=== PATIENT | male | born 1990 | race Caucasian/White ===

== ENCOUNTER 2019-06-04 09:02 | Emergency (ER) | payer BC, SELFPAY ==
[2019-06-04 09:06] VITALS: BP 124/81; PULSE 101; RESP 18; TEMP 37.5; O2SAT 97
--- NOTE | 2019-06-04 09:08 | ED.URI ---
HPI - URI/Sore Throat General Chief Complaint: Upper Respiratory Infection Stated Complaint: CHEST/HEAD COLD Time Seen by Provider: 06/04/19 09:17 Source: patient and RN notes reviewed Mode of arrival: ambulatory Limitations: no limitations History of Present Illness HPI Narrative: 28-year-old male presents with concern for 4-day history of chest congestion, cough, sore throat. Reports throat gets sore with coughing. Reports chills, fatigue, general malaise. Denies fever. Reports has been taking DayQuil and NyQuil with some relief. MD elicited complaint: cough Related Data Home Medications Medication Instructions Recorded Confirmed Arely DayQuil-NyQuil 06/04/19 Allergies Allergy/AdvReac Type Severity Reaction Status Date / Time No Known Allergies Allergy Verified 06/04/19 09:14 Review of Systems Review of Systems: Narrative: CONSTITUTIONAL: Reports malaise, chills, sweats. Denies fever. EYES: Denies visual changes, redness, or discharge. ENT: Reports rhinorrhea, sore throat. Denies sinus pain, otalgia and congestion. CARDIOVASCULAR: Denies chest pain, palpitations, or edema. RESPIRATORY: Reports productive cough, chest congestion. Denies dyspnea. GASTROINTESTINAL: Denies abdominal pain, nausea, vomiting, diarrhea SKIN: Denies rash or itching. MUSCULOSKELETAL: Reports myalgia. NEUROLOGIC: Denies headache. All systems reviewed & are unremarkable except as noted in HPI and below PMFSH Family History Family History (Updated 09/01/18 @ 14:27 by DOCTOR UNKNOWN) Grandparent Diabetes mellitus Acute myocardial infarction Cerebrovascular accident Family history of cardiovascular disease Father Hypertension Family history of cardiovascular disease Social History Social History Smoking status: Never smoker Alcohol intake: current Comments At time of signature, agree with nursing past medical, surgical, social and family history. There is no relevant family history pertinent to the presenting complaint Exam Narrative: Exam Narrative: GENERAL: Well-appearing, well-nourished, and in no acute distress. HEAD: Normocephalic, atraumatic. EYES: PERRLA, conjunctivae clear, and EOMI. ENT: Nares clear, turbinates erythematous, clear discharge. Mucous membranes moist. TM pearly pitt with dull light reflex bilaterally; no tragal tenderness. Oropharynx erythematous without lesions. Tonsils not 3 relief and without exudate, no drooling, no hoarseness, no trismus. NECK: Supple. No lymphadenopathy CHEST: Clear to auscultation, breath sounds equal. No wheezing, rhonchi, rales, or stridor. No respiratory distress, speaks in full sentences. Cough noted HEART: Regular rate and rhythm. No murmur heard. Normal peripheral pulses. SKIN: Warm, dry, no rash. NEURO: Alert and oriented x3. PSYCH: Normal mood and affect Course Course Emergency Course: Patient is aware of diagnosis, understands and agrees to treatment plan. Anticipatory guidance given. Patient agrees to follow-up as directed and is aware of reasons to seek care at the emergency department. Portions of this record may have been created with voice recognition software Vital Signs Vital signs: Reviewed. Pt has been instructed to follow up with his primary care provider within the next week regarding his elevated blood pressure today. MDM - URI/Sore Throat MDM Narrative Medical decision making narrative: Differential diagnosis considered: Strep pharyngitis, allergic rhinitis, upper respiratory tract infection, sinusitis, rhinosinusitis, nasopharyngitis. viral pharyngitis, otitis media, otitis externa, pneumonia, bronchitis, viral cough syndrome, viral syndrome, and influenza. Exam findings show no acute concerns or changes; patient is non-toxic appearing and is in no distress. Patient is appropriate for outpatient treatment and follow-up. Critical Care Time Critical Care Time Critical Care Time: No Discharge Plan Discharge Clinical Impression: Acute
== END 2019-06-04 09:42 | disposition home or self-care (01) ==
PROVIDERS: Emergency Provider Nurse Practitioner; PCP Family Medicine
DX: B34.9 Viral infection, unspecified (principal)
CPT/HCPCS: 87804; 99213; G0463

== ENCOUNTER 2024-09-01 20:19 | Emergency (ER) | payer OTHER, SELFPAY ==
--- NOTE | ~2024-09-01 | CT_ITS ---
CT abdomen pelvis w con Ordering provider: Miranda Murguia PA-C History: 34 years Male with . abd pain, dysuria, hematuria . Comparison: None. Technique: CT abdomen and pelvis with IV and without oral contrast. Automated exposure control and it erative reconstruction technique were employed. The dose-length product was 968.55 mGy-cm. 100 mL Omn ipaque 350 was given IV. Findings: VISUALIZED LOWER CHEST: Dependent atelectatic changes. The UPPER ABDOMINAL ORGANS: Liver: Normal. Gallbladder: Normal. Spleen: Normal. Stomach/duodenum: Small sliding hiatus hernia. Pancreas: Normal. Adrenals: Normal. Kidneys: Normal. PELVIC ORGANS: The bladder is underfilled with thickened wall. Evaluation for cystitis advised. BOWEL AND MESENTERY: Colon: No evidence of diverticulitis.. No evidence of appendicitis. Small Bowel: Normal. No obstruction. Possibility of transient hernia in the small bowel in the mid ab domen is not excluded with target-like appearance Follow-up advised. Slightly thickened small bowel loop is seen in the mid abdomen Peritoneum/mesentery: No free air or free fluid. No mesenteric lymphadenopathy. Mesenteric lymph node s with the largest measuring 1.6 cm is noted. RETROPERITONEUM: Normal aorta. No retroperitoneal lymphadenopathy. MUSCULOSKELETAL: Superficial soft tissues: The superficial soft tissues are normal. Bones: Normal spine. IMPRESSION: 1. No evidence of appendicitis, diverticulitis or intestinal obstruction. 2. Mesenteric lymph nodes with the largest measures 1.6 cm. 3. Highly suggestive transient intussusception in the small bowel. Follow-up advised. Reviewed, dictated and finalized at location A. IMPRESSION: 1. No evidence of appendicitis, diverticulitis or intestinal obstruction. 2. Mesenteric lymph nodes with the largest measures 1.6 cm. 3. Highly suggestive transient intussusception in the small bowel. Follow-up a dvised.
--- OUTSIDE RECORDS SUMMARY | 2024-09-01 20:22 | XMS_ITS | Patient Health Record ---
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
--- OUTSIDE RECORDS SUMMARY | 2024-09-01 20:22 | XMS_ITS | Continuity of Care Document ---
Author Organization [facility] Address [address] [place] [address] [place] [id number] Phone Care Team Providers Care Burglar Alarm Inspector Name Role Phone Jesus PT,MPT,ATC, Dennis Unavailable Unavai lable Procedures Procedure Date WORK COND/WORK HARD RE EVAL Work Conditioning Initial 2 hrs 024 Work Conditioning Initial 2 hrs 024 Work Conditioning add 1 hr Work Conditioning Initial 2 hrs 024 Work Conditioning add 1 hr Work Conditioning Initial 2 hrs 024 Work Conditioning add 1 hr Work Conditioning Initial 2 hrs 024 Work Conditioning add 1 hr Work Cond Initial Report Work Conditioning Initial 2 hrs 024 Therapeutic Activities Neuromuscular Re-Ed Therapeutic Exercise Therapeutic Activities Neuromuscular Re-Ed Therapeutic Exercise Therapeutic Activities Neuromuscular Re-Ed Therapeutic Exercise Therapeutic Activities Neuromuscular Re-Ed Therapeutic Exercise Therapeutic Activities Neuromuscular Re-Ed Therapeutic Exercise Therapeutic Activities Neuromuscular Re-Ed Therapeutic Exercise PROTECTIVE SERVICES OFFICER Acute Therapeutic Activities Neuromuscular Re-Ed Therapeutic Exercise Therapeutic Activities Neuromuscular Re-Ed Therapeutic Exercise Therapeutic Activities Therapeutic Exercise Therapeutic Activities Therapeutic Exercise Therapeutic Activities Therapeutic Exercise Therapeutic Activities Therapeutic Exercise Therapeutic Activities Therapeutic Exercise Therapeutic Activities Therapeutic Exercise Therapeutic Activities Therapeutic Exercise Progress Note Therapeutic Activities Therapeutic Exercise Therapeutic Activities Therapeutic Exercise Therapeutic Activities Therapeutic Exercise Therapeutic Activities Therapeutic Exercise Therapeutic Activities Therapeutic Exercise Therapeutic Activities Therapeutic Exercise Therapeutic Activities Therapeutic Exercise Therapeutic Activities Therapeutic Exercise PT Evaluation High Complexity Therapeutic Activities WORK COND/WORK HARD RE EVAL Work Conditioning Initial 2 hrs 023 Work Conditioning Initial 2 hrs 023 Work Conditioning add 1 hr Work Conditioning Initial 2 hrs 023 Work Conditioning add 1 hr Work Conditioning Initial 2 hrs 023 Work Conditioning add 1 hr Therapeutic Activities Neuromuscular Re-Ed Therapeutic Exercise Work Conditioning Initial 2 hrs 023 Work Conditioning add 1 hr Work Conditioning Initial 2 hrs 023 Work Conditioning add 1 hr Progress Note Therapeutic Activities Neuromuscular Re-Ed Work Conditioning Initial 2 hrs 023 Work Conditioning add 1 hr Therapeutic Activities Neuromuscular Re-Ed Therapeutic Exercise Work Conditioning Initial 2 hrs 023 Work Conditioning add 1 hr Work Conditioning Initial 2 hrs 023 Work Conditioning add 1 hr Neuromuscular Re-Ed Therapeutic Exercise Work Cond Initial Report Neuromuscular Re-Ed Therapeutic Exercise Neuromuscular Re-Ed Therapeutic Exercise Neuromuscular Re-Ed Therapeutic Exercise Neuromuscular Re-Ed Therapeutic Exercise Hot or Cold Pack Neuromuscular Re-Ed Therapeutic Exercise Neuromuscular Re-Ed Therapeutic Exercise Neuromuscular Re-Ed Therapeutic Exercise Neuromuscular Re-Ed Therapeutic Exercise Neuromuscular Re-Ed Therapeutic Exercise Therapeutic Activities Neuromuscular Re-Ed Therapeutic Exercise Therapeutic Activities Neuromuscular Re-Ed Therapeutic Exercise Therapeutic Activities Neuromuscular Re-Ed Therapeutic Exercise PT Evaluation High Complexity Therapeutic Activities Neuromuscular Re-Ed Therapeutic Activities Therapeutic Exercise Therapeutic Activities Therapeutic Exercise Therapeutic Activities Therapeutic Exercise Progress Note Therapeutic Activities Therapeutic Exercise Therapeutic Activities Therapeutic Exercise Therapeutic Activities Therapeutic Exercise Therapeutic Activities Therapeutic Exercise Therapeutic Activities Therapeutic Exercise Therapeutic Activities Therapeutic Exercise Therapeutic Activities Therapeutic Exercise Therapeutic Activities Therapeutic Exercise Progress Note Therapeutic Activities Therapeutic Exercise Therapeutic Activities Therapeutic Exercise Therapeutic Activities Therapeutic Exercise Therapeutic Activities Therapeutic Exercise Therapeutic Activities Therapeutic Exercise Therapeutic Activities Neuromuscular Re-Ed Therapeutic Exercise Therapeutic Activities Neuromuscular Re-Ed Therapeutic Exercise Therapeutic Activities Neuromuscular Re-Ed Therapeutic Exercise Therapeutic Activities Neuromuscular Re-Ed Therapeutic Exercise Therapeutic Activities Neuromuscular Re-Ed Therapeutic Exercise Therapeutic Activities Neuromuscular Re-Ed Therapeutic Exercise Therapeutic Activities Neuromuscular Re-Ed Therapeutic Exercise Therapeutic Activities Neuromuscular Re-Ed Therapeutic Exercise Therapeutic Activities Neuromuscular Re-Ed Therapeutic Exercise Therapeutic Activities Neuromuscular Re-Ed Therapeutic Exercise Therapeutic Activities Neuromuscular Re-Ed Therapeutic Exercise Therapeutic Activities Neuromuscular Re-Ed Therapeutic Exercise Therapeutic Activities Neuromuscular Re-Ed Therapeutic Exercise Therapeutic Activities Neuromuscular Re-Ed Therapeutic Exercise Therapeutic Activities Neuromuscular Re-Ed Therapeutic Exercise Therapeutic Activities Neuromuscular Re-Ed Therapeutic Exercise Therapeutic Activities Neuromuscular Re-Ed Therapeutic Exercise Therapeutic Activities Neuromuscular Re-Ed Therapeutic Exercise Therapeutic Activities Neuromuscular Re-Ed Therapeutic Exercise Therapeutic Activities Neuromuscular Re-Ed Therapeutic Exercise Therapeutic Activities Neuromuscular Re-Ed Therapeutic Exercise Therapeutic Activities Neuromuscular Re-Ed Therapeutic Exercise Therapeutic Activities Neuromuscular Re-Ed Aug- Therapeutic Exercise Therapeutic Activities Aug- Neuromuscular Re-Ed Aug- Therapeutic Exercise Therapeutic Activities Neuromuscular Re-Ed Therapeutic Exercise Therapeutic Activities Aug- Neuromuscular Re-Ed Aug- Therapeutic Exercise Therapeutic Activities Neuromuscular Re-Ed Therapeutic Exercise Therapeutic Activities Aug- Neuromuscular Re-Ed Aug- Therapeutic Exercise Therapeutic Activities Aug- Neuromuscular Re-Ed Aug- Therapeutic Exercise Progress Note Therapeutic Activities Neuromuscular Re-Ed Aug- Therapeutic Exercise Therapeutic Activities Neuromuscular Re-Ed Aug- Therapeutic Exercise Therapeutic Activities Aug- Neuromuscular Re-Ed Aug- Therapeutic Exercise Therapeutic Activities Neuromuscular Re-Ed Therapeutic Exercise Therapeutic Activities Neuromuscular Re-Ed Therapeutic Exercise Therapeutic Activities Neuromuscular Re-Ed Therapeutic Exercise Therapeutic Activities Neuromuscular Re-Ed Therapeutic Exercise Hot or Cold Pack Therapeutic Activities Neuromuscular Re-Ed Therapeutic Exercise Therapeutic Activities Neuromuscular Re-Ed Therapeutic Exercise Therapeutic Activities Neuromuscular Re-Ed Therapeutic Exercise Therapeutic Activities Neuromuscular Re-Ed Therapeutic Exercise Therapeutic Activities Neuromuscular Re-Ed Therapeutic Exercise Therapeutic Activities Neuromuscular Re-Ed Therapeutic Exercise Therapeutic Activities Neuromuscular Re-Ed Therapeutic Exercise PT Evaluation Moderate Complexity Therapeutic Activities Neuromuscular Re-Ed Therapeutic Exercise Therapeutic Activities Neuromuscular Re-Ed Therapeutic Exercise Therapeutic Activities Neuromuscular Re-Ed Therapeutic Exercise PT Evaluation Moderate Complexity Therapeutic Activities Neuromuscular Re-Ed Therapeutic Exercise Advance Directives Directive Yes / No Effective Date File Name No Information Encounters Encounter Description Practice Location Reason(s) For Visit Diagnoses Date Provider Providers Copied on Encounter [facility] [facility], [place], [place], [id number], [place] tel:[phone] [place] No Information 4 [place]. [facility], [place], [place], [address], [place] tel:[phone] [place] No Information 4 Ludy Castanoian. [id number] [place] [address], [facility], [place]. tel:[phone] Referring Provider: Garth Mcgarry [address], [place], [address]. tel:[phone] [place], [place] [address] [address], [place], [place], [id number], [place] tel:[phone] [place] No Information 4 [place] , [place], [place]. Referring Provider: Garth Mcgarry [address], [place], [address]. tel:[phone] [place], [place] [address] [address], [place], [place], [address], [place] tel:[phone] [place] No Information 4 [place] , [place]. Referring Provider: Garth Mcgarry [address], [place], [address]. tel:[phone] [place], [place] [address] [address], [place], [place], [address], [place] tel:[phone] [place] No Information 4 [place] , [place]. Referring Provider: Garth Mcgarry [address], [place], [address]. tel:[phone] [place], [place] [address] [address], [place], [place], [address], [place] tel:[phone] [place] No Information 4 [place] , [place]. Referring Provider: Garth Mcgarry [address], [place], [address]. tel:[phone] [facility], [place], [place], [id number], [place] tel:[phone] [place] No Information 4 Clarisaisis Miller. [address] [place], [place], [facility], [place]. tel:[phone] Referring Provider: Patel Casillas, [address], [place], [address]. tel:[phone] [place] [address], [address], [place], [place], [address], [place] tel:[phone] [place] No Information 4 Garrels Mireille. . Referring Provider: Patel Casillas, [address], [place], [address]. tel:[phone] [place], [place] [address] [address], [place], [address], [place] tel:[phone] [place] No Information 4 Ohnesorge Merrill. . Referring Provider: Garth Mcgarry [address], [place], [address]. tel:[phone] [place], [place] [address] [address], [place], [place], [address], [place] tel:[phone] [place] No Information 4 [place] , [place]. Referring Provider: Garth Mcgarry [address], [place], [address]. tel:[phone] [place], [place] [address] [address], [place], [place], [address], [place] tel:[phone] [place] No Information 4 Ohnesorge Merrill. . Referring Provider: Garth Mcgarry [address], [place], [address]. tel:[phone] [facility], [place], [address], [place] tel:[phone] [place] No Information 4 [place] , [place]. Referring Provider: Garth Mcgarry [address], [place], [address]. tel:[phone] [facility], [address], [place], [place], [address], [place] tel:[phone] [place] No Information 4 Ohnesorge Merrill. . Referring Provider: Patel Casillas, [address], [place], [address]. tel:[phone] [facility], [address], [place], [place], [address], [place] tel:[phone] [place] No Information 4 [place] , [place]. Referring Provider: Patel Casillas, [address], [place], [address]. tel:[phone] [place] [address], [address], [place], [place], [address], [place] tel:[phone] [place] No Information 4 Toro Dan. . Referring Provider: Garth Mc[address], [place], [address]. tel:[phone] [facility], [address], [place], [place], [address], [place] tel:[phone] [place] No Information 4 [place] , [place]. Referring Provider: Garth Mcgar[address], [place], [address]. tel:[phone] [facility], [address], [place], [place], [address], [place] tel:[phone] [place] No Information 0 4 Ohnesorge Merrill. . Referring Provider: Garth Mc[address], [place], [address]. tel:[phone] [facility], [address], [place], [place], [address], [place] tel:[phone] [place] No Information 0 4 Brittaney Cooley. . Referring Provider: Patel Casillas, [address], [place], [address]. tel:[phone] [facility], [address], [place], [address], [place] tel:[phone] [place] No Information 4 Brittaney Cooley. . Referring Provider: Patel Casillas, [address], [place], [address]. tel:[phone] [facility], [address], [place], [place], [id number], [place] tel:[phone] [place] No Information 4 Jose Momin. . Referring Provider: Patel Casillas, [address], [place], [address]. tel:[phone] [place] [address], [address], [place], [place], [address], [place] tel:[phone] [place] No Information 4 [place] , [place] Referring Provider: Patel Casillas, [address], [place], [address]. tel:[phone] [facility], [address], [place], [place], [address], [place] tel:[phone] [place] No Information 4 Brittaney Cooley. . Referring Provider: Patel Casillas, [address], [place], [address]. tel:[phone] [facility], [address], [place], [place], [address], [place] tel:[phone] [place] No Information 4 Brittaney Cooley. . Referring Provider: Patel Casillas, [address], [place], [address]. tel:[phone] [facility], [address], [place], [place], [address], [place] tel:[phone] [place] No Information - 4 Klahn Yasir. . Referring Provider: Patel Casillas, [address], [place], [address]. tel:[phone] [place], [place] [address] [address], [place], [place], [id number], [place] tel:[phone] [place] No Information 0 4 Klahn Yasir. . Referring Provider: Patel Casillas, [address], [place], [address]. tel:[phone] [place] [address], [address], [place], [place], [address], [place] tel:[phone] [place] No Information 0 4 Klahn Yasir. . Referring Provider: Garth cMgarry [address], [place], [address]. tel:[phone] [place] [address] [address], [place], [place], [id number], [place] tel:[phone] [place] No Information September-3 0 4 Klahn Yasir. . Referring Provider: Garth Mcgarry [address], [place], [address]. tel:[phone] [place], [place] [address] [address], [place], [address], [place] tel:[phone] [place] No Information September- 4 Kln Yasir. . Referring Provider: Garth Mcgar[address], [place], [address]. tel:[phone] [place] [address] [address], [place], [place], [address], [place] tel:[phone] [place] No Information September-2 3 4 Keikon Yasir. . Referring Provider: Patel Casillas [address], [place], [address]. tel:[phone] [facility], [place], [address], [place] tel:[phone] [place] No Information 4 Brittaney Cooley. . Referring Provider: Patel Casillas, [address] [facility] [address], [place], [address]. tel:[phone] [place], [place] [address] [address], [place], [place], [address], [place] tel:[phone] [place] No Information 4 Channing [place], [place]. Referring Provider: Patel Casillas, [address], [place], [address]. tel:[phone] [place] [address] [address], [place], [place], [address], tel:[phone] [place] No Information 3 Ludy Miller. [address] [place] [address], [facility], . tel:[phone] Referring Provider: Patel Hadley [address] [facility] [address], [place], [address]. tel:[phone] [place], [place] [address] [address], [place], [place], [address], [place] tel:[phone] [place] No Information 3 Ch[place]. Referring Provider: Patel Hadley [address] [facility] [address], [place], [address]. tel:[phone] [place], [place] [address] [address], [place], [address], [place] tel:[phone] [place] No Information 3 Brittaney Cooley. . Referring Provider: Patel Hadley [address] [facility] [address], [place], [address]. tel:[phone] [place], [place] [address] [address], [place], [address], [place] tel:[phone] [place] No Information 3 Jose Momin. . Referring Provider: Patel Hadley [address] [facility] [address], [place], [address]. tel:[phone] [place] [address], [address], [place], [address], [place] tel:[phone] [place] No Information 3 Brittaney Cooley. . Referring Provider: Maykel Limon, [address] [facility] [address], [place], [address]. tel:[phone] [address] [place] [address], [address], [place], [address], [place] tel:[phone] [place] No Information 3 Jose Momin. . Referring Provider: Patel Hadley, [address] [facility] [address], [place], [address]. tel:[phone] [address] [place] [address], [address] [facility], [place], [address], [place] tel:[phone] [place] No Information 3 Brittaney Cooley. . Referring Provider: Patel Hadley [address] [facility] [address], [place], [address]. tel:[phone] [address] [place] [address] [address], [place], [place], [address], [place] tel:[phone] [place] No Information 3 Brittaney Cooley. . Referring Provider: Maykel Limon, [address] [facility] [address], [place], [address]. tel:[phone] [address] [place] [address], [address], [place], [address], [place] tel:[phone] [place] No Information 3 [place]. Referring Provider: Patel Hadley [address] [facility] [address], [place], [address]. tel:[phone] [place] [address], [address], [place], [address], [place] tel:[phone] [place] No Information 3 Ohnesorge Merrill. . Referring Provider: Maykel Limon, [address], [place], [address]. tel:[phone] [facility], [address] [place] [address] [address], [place], [address], [place] tel:[phone] [place] No Information 3 Lee [place]ER[place], [place]. Referring Provider: Patel Hadley, [address], [place], [address]. tel:[phone] [place] [address], [address] [place], [place] [address], [place], [address], [place] tel:[phone] [place] No Information 3 Ohnesorge Merrill. . Referring Provider: Patel Hadley [address], [place], [address]. tel:[phone] [place] [address], [address] [place], [place] [address] [address], [place], [address], [place] tel:[phone] [place] No Information 0 3 Jesus [place], [place]. Referring Provider: Maykel Limon, [address] [facility] [address], [place], [address]. tel:[phone] [place] [address] [place] [address] [address], [place], [address], [place] tel:[phone] [place] No Information 0 3 Bob Maldonado. . Referring Provider: Patel Hadley [address], [place], [address]. tel:[phone] [place] [address], [address] [place] [address] [address], [place], [address], [place] tel:[phone] [place] No Information 0 3 Brittaney Cooley. . Referring Provider: Maykel Limon, [address], [place], [address]. tel:[phone] [place] [address], [address] [place] [address] [address], [place], [address], [place] tel:[phone] [place] No Information 3 Brittaney Cooley. . Referring Provider: Patel Hadley [address] [facility] [address], [place], [address]. tel:[phone] [place] [address], [address], [place], [address], [place] tel:[phone] [place] No Information 3 Brittaney Cooley. . Referring Provider: Maykel Limon, [address], [place], [address]. tel:[phone] [place] [address], [address] [facility], [place], [address], [place] tel:[phone] [place] No Information 3 [place]. Referring Provider: Patel Hadley [address] [facility] [address], [place], [address]. tel:[phone] [place] [address], [address] [facility], [place], [address], [place] tel:[phone] [place] No Information 3 Brittaney Cooley. . Referring Provider: Maykel Limon, [address], [place], [address]. tel:[phone] [place] [address], [address], [place], [address], [place] tel:[phone] [place] No Information 3 [place]. Referring Provider: Patel Hadley [address] [facility] [address], [place], [address]. tel:[phone] [place] [address], [address], [place], [address], [place] tel:[phone] [place] No Information 3 Jose Momin. . Referring Provider: Maykel Limon [address] [facility] [address], [place], [address]. tel:[phone] [facility], [address], [place], [place], [address], [place] tel:[phone] [place] No Information 3 Jose Momin. . Referring Provider: Maykel Limon, [address], [place], [address]. tel:[phone] [facility], [facility] [address], [place], [address], [place] tel:[phone] [place] No Information 3 Brittaney Cooley. . Referring Provider: Maykel Limon, [address], [place], [address]. tel:[phone] [place] [address], [address] [place], [place] [address] [address], [place], [address], [place] tel:[phone] [place] No Information 3 Brittaney Cooley. . Referring Provider: Maykel Limon, [address], [place], [address]. tel:[phone] [facility], [address] [facility], [place], [address], [place] tel:[phone] [place] No Information 3 Brittaney Cooley. . Referring Provider: Maykel Limon, [address], [place], [address]. tel:[phone] [facility], [address], [place], [place], [address], [place] tel:[phone] [place] No Information 3 Brittaney Cooley. . Referring Provider: Maykel Limon, [address], [place], [address]. tel:[phone] [facility], [address] [facility], [place], [place], [address], [place] tel:[phone] [place] No Information - 3 Klahn Yasir. . Referring Provider: Maykel Limon, [address] [facility] [facility] [address], [place], [address]. tel:[phone] [facility] [address], [place], [place], [address], [place] tel:[phone] [place] No Information 0- 3 Klahn Yasir. . Referring Provider: Patel Hadley, [address], [place], [address]. tel:[phone] [place] [address] [address], [place], [place], [address], [place] tel:[phone] [place] No Information Nov-0 6 3 Klahn Yasir. . Referring Provider: Patel Hadley [address], [place], [address]. tel:[phone] [place] [address] [address], [place], [place], [address], [place] tel:[phone] [place] No Information 0 3 3 Klahn Yasir. . Referring Provider: Patel Hadley [address], [place], [address]. tel:[phone] [place] [address] [address], [place], [place], [address], [place] tel:[phone] [place] No Information 3 0 3 Klahn Yasir. . Referring Provider: Patel Hadley [address], [place], [address]. tel:[phone] [facility], [place], [place], [address], [place] tel:[phone] [place] No Information 2 3 Klahn Yasir. . Referring Provider: Patel Hadley [address], [place], [address]. tel:[phone] [place], [place] [address] [address], [place], [place], [id number], [place] tel:[phone] [place] No Information Jeovany-2 3 Channing H[place], [place]. Referring Provider: Patel Hadley, [address], [place], [address]. tel:[phone] [place] [address], [address], [place], [place], [id number], [place] tel:[phone] [place] No Information Jeovany-2 3 Jose Momin. . Referring Provider: Patel Hadley [address], [place], [address]. tel:[phone] [place] [address], [address], [place], [place], [id number], [place] tel:[phone] [place] No Information Jeovany-2 3 Brittaney Cooley. . Referring Provider: Patel Hadley [address], [place], [address]. tel:[phone] [place] [address], [address], [place], [place], [id number], [place] tel:[phone] [place] No Information Oct- 3 Brittaney Cooley. . Referring Provider: Patel Hadley [address], [place], [address]. tel:[phone] [place] [address] [address], [place], [place], [id number], [place] tel:[phone] [place] No Information Oct-1 3 Brittaney Cooley. . Referring Provider: Patel Hadley [address], [place], [address]. tel:[phone] [place], [place] [address] [address], [place], [place], [id number], [place] tel:[phone] [place] No Information Oct-1 3 Lee [place]ER[place], [place]. Referring Provider: Patel Hadley [address], [place], [address]. tel:[phone] [place] [address], [address], [place], [place], [id number], [place] tel:[phone] [place] No Information Jeovany-1 2-202 3 Klahn Yasir. . Referring Provider: Patel Hadley, [address], [place], [address]. tel:[phone] [place] [address], [address], [place], [place], [id number], [place] tel:[phone] [place] No Information Jeovany-0 9-202 3 Klahn Yasir. . Referring Provider: Patel Hadley [address], [place], [address]. tel:[phone] [place], [place] [address] [address], [place], [place], [id number], [place] tel:[phone] [place] No Information Jeovany-0 8-202 3 Klahn Yasir. . Referring Provider: Garth Mcgarry [address], [place], [address]. tel:[phone] [place] [address] [address], [place], [place], [id number], [place] tel:[phone] [place] No Information Jeovany-0 6-202 3 Klahn Yasir. . Referring Provider: Patel Hadley [address], [place], [address]. tel:[phone] [place], [place] [address] [address], [place], [place], [id number], [place] tel:[phone] [place] No Information Jeovany-0 5-202 3 Klahn Yasir. . Referring Provider: Patel Hadley [address], [place], [address]. tel:[phone] [place] [address] [address], [place], [place], [id number], [place] tel:[phone] [place] No Information September-2 5-202 3 Klahn Yasir. . Referring Provider: Garth Mcgarry [address], [place], [address]. tel:[phone] [place] [address], [address], [place], [place], [id number], [place] tel:[phone] [place] No Information 3 Jesus Collins. , [place], [place]. Referring Provider: Patel Hadley [address], [place], [address]. tel:[phone] [place] [address] [address], [place], [place], [id number], [place] tel:[phone] [place] No Information 3 Klchecon Yasir. . Referring Provider: Patel Hadley [address] [facility] [address], [place], [address]. tel:[phone] [place] [address], [address], [place], [id number], [place] tel:[phone] [place] No Information 3 Klchecon Yasir. . Referring Provider: Patel Hadley [address] [facility] [address], [place], [address]. tel:[phone] [place], [place] [address] [address], [place], [id number], [place] tel:[phone] [place] No Information 3 Brittaney Cooley. . Referring Provider: Garth Mc[address], [place], [address]. tel:[phone] [place], [place] [address] [address], [place], [place], [id number], [place] tel:[phone] [place] No Information 3 Jesus [place] , [place]. Referring Provider: Patel Hadley [address] [facility] [address], [place], [address]. tel:[phone] [place] [address] [address], [place], [id number], [place] tel:[phone] [place] No Information 3 Brittaney Cooley. . Referring Provider: Garth Mc[address], [place], [address]. tel:[phone] [place] [address] [address], [place], [place], [id number], [place] tel:[phone] [place] No Information September-1 5- 3 Keikon Yasir. . Referring Provider: Paetl Hadley, [address] [facility] [address], [place], [address]. tel:[phone] [place] [address] [address], [place], [place], [address], [place] tel:[phone] [place] No Information September- 2- 3 Keikon Yasir. . Referring Provider: Patel Hadley, [address] [facility] [address], [place], [address]. tel:[phone] [place] [address] [address], [place], [place], [id number], [place] tel:[phone] [place] No Information September-05 04- 3 Brittaney Cooley. . Referring Provider: Patel Casillas, [address], [place], [address]. tel:[phone] [place] [address] [address], [place], [place], [id number], [place] tel:[phone] [place] No Information September-1 0-202 3 Jesus [place]. Referring Provider: Patel Casillas, [address], [place], [address]. tel:[phone] [place] [address] [address], [place], [place], [id number], [place] tel:[phone] [place] No Information May-0 9-202 3 Brittaney Cooley. . Referring Provider: Patel Casillas, [address], [place], [address]. tel:[phone] [facility] [address], [place], [place], [id number], [place] tel:[phone] [place] No Information May-0 8-202 3 Klahn Yasir. . Referring Provider: Patel Casillas, [address], [place], [address]. tel:[phone] [place] [address], [address], [place], [place], [id number], [place] tel:[phone] [place] No Information May-0 5-202 3 Klahn Yasir. . Referring Provider: Patel Hadley, [address] [facility] [address], [place], [address]. tel:[phone] [place] [address], [address], [place], [place], [id number], [place] tel:[phone] [place] No Information May-0 4-202 3 Klahn Yasir. . Referring Provider: Patel Casillas, [address], [place], [address]. tel:[phone] [place] [address], [address], [place], [place], [id number], [place] tel:[phone] [place] No Information May-0 3-202 3 Klahn Yasir. . Referring Provider: Patel Hadley [address] [facility] [address], [place], [address]. tel:[phone] [place] [address], [address], [place], [place], [id number], [place] tel:[phone] [place] No Information May-0 2-202 3 Jesus [place]. Referring Provider: Patel Casillas, [address], [place], [address]. tel:[phone] [place] [address], [address], [place], [place], [id number], [place] tel:[phone] [place] No Information May-0 1-202 3 Klahn Yasir. . Referring Provider: Patel Hadley, [address] [facility] [address], [place], [address]. tel:[phone] [place] [address], [address], [place], [place], [id number], [place] tel:[phone] [place] No Information Apr-2 3 Brittaney Cooley. . Referring Provider: Patel Hadley [address] [facility] [address], [place], [address]. tel:[phone] [place] [address], [address], [place], [place], [id number], [place] tel:[phone] [place] No Information Aug-2 3 Brittaney Cooley. . Referring Provider: Patel Casillas, [address], [place], [address]. tel:[phone] [place] [address], [address], [place], [place], [id number], [place] tel:[phone] [place] No Information Aug-2 3 Jesus [place]. Referring Provider: Patel Hadley [address] [facility] [address], [place], [address]. tel:[phone] [place] [address], [address], [place], [place], [id number], [place] tel:[phone] [place] No Information Aug-2 3 Brittaney Cooley. . Referring Provider: Patel Casillas, [address], [place], [address]. tel:[phone] [place] [address], [address], [place], [place], [id number], [place] tel:[phone] [place] No Information Aug-2 3 Brittaney Cooley. . Referring Provider: Patel Hadley [address], [place], [address]. tel:[phone] [place] [address] [address], [place], [place], [id number], [place] tel:[phone] [place] No Information Aug-2 3 Brittaney Cooley. . Referring Provider: Patel Hadley [address], [place], [address]. tel:[phone] [place] [address] [address], [place], [place], [id number], [place] tel:[phone] [place] No Information Aug-2 0- 3 Keikon Yasir. . Referring Provider: Garth Mcgar[address], [place], [address]. tel:[phone] [place] [address], [address], [place], [place], [id number], [place] tel:[phone] [place] No Information Aug- 3 Jesus [place] , [place], [place]. Referring Provider: Patle Hadley, [address], [place], [address]. tel:[phone] [place] [address], [address], [place], [place], [address], [place] tel:[phone] [place] No Information Aug- 3 Brittaney Cooley. . Referring Provider: Garth Mcgar[address], [place], [address]. tel:[phone] [place] [address] [address], [place], [place], [address], [place] tel:[phone] [place] No Information 3 Brittaney Cooley. . Referring Provider: Patel Hadley [address], [place], [address]. tel:[phone] [place] [address], [address], [place], [place], [id number], [place] tel:[phone] [place] No Information Aug-1 3 Keikon Yasir. . Referring Provider: Patel Hadley [address], [place], [address]. tel:[phone] [place] [address] [address], [place], [place], [id number], [place] tel:[phone] [place] No Information Apr-1 - 3 Brittaney Cooley. . Referring Provider: Garth Mcgarry [address], [place], [address]. tel:[phone] [place] [address], [address], [place], [place], [address], [place] tel:[phone] [place] No Information Apr-1 2-202 3 Jesus Collins , [place], [place]. Referring Provider: Patel Hadley, [address], [place], [address]. tel:[phone] [place] [address], [address], [place], [place], [id number], [place] tel:[phone] [place] No Information Apr-1 1-202 3 Klchecon Yasir. . Referring Provider: Patel Casillas, [address], [place], [address]. tel:[phone] [place] [address], [address], [place], [place], [address], [place] tel:[phone] [place] No Information Apr-1 0-202 3 Keikon Yasir. . Referring Provider: Patel Hadley, [address], [place], [address]. tel:[phone] [place] [address], [address], [place], [place], [address], [place] tel:[phone] [place] No Information Apr-0 7- 3 Keikon Yasir. . Referring Provider: Patel Hadley, [address], [place], [address]. tel:[phone] [place], [place] [address] [address], [place], [place], [address], [place] tel:[phone] [place] No Information Apr-0 6-202 3 Brittaney Cooley. . Referring Provider: Patel Casillas, [address], [place], [address]. tel:[phone] [facility], [place], [place], [address], [place] tel:[phone] [place] No Information Apr-0 5-202 3 Jesus Vale , [place]. Referring Provider: Patel Hadley [address], [place], [address]. tel:[phone] [place] [address], [address], [place], [place], [id number], [place] tel:[phone] [place] No Information Apr-0 4 3 Klahn Yasir. . Referring Provider: Patel Casillas, [address], [place], [address]. tel:[phone] [facility] [address], [place], [place], [address], [place] tel:[phone] [place] No Information Apr-0 3-202 3 Klahn Yasir. . Referring Provider: Patel Hadley [address], [place], [address]. tel:[phone] [place] [address], [address], [place], [place], [address], [place] tel:[phone] [place] No Information Mar-3 1-202 3 Klahn Yasir. . Referring Provider: Patel Hadley [address], [place], [address]. tel:[phone] [place] [address], [address], [place], [place], [address], [place] tel:[phone] [place] No Information Mar-3 0-202 3 Klahn Yasir. . Referring Provider: Patel Hadley [address], [place], [address]. tel:[phone] [place] [address] [address], [place], [place], [address], [place] tel:[phone] [place] No Information Mar-2 9 3 Klahn Yasir. . Referring Provider: Patel Hadley [address], [place], [address]. tel:[phone] [place], [place] [address] [address], [place], [place], [id number], [place] tel:[phone] [place] No Information Mar-2 3-202 3 Klahn Yasir. . Referring Provider: Patel Hadley [address], [place], [address]. tel:[phone] [facility], [facility] [address], [place], [place], [address], [place] tel:[phone] [place] No Information Mar-2 2-202 3 Keikon Yasir. . Referring Provider: Patel Hadley, [address] [facility] [address], [place], [address]. tel:[phone] [facility] [address] [place], [place] [address], [place], [place], [address], [place] tel:[phone] [place] No Information Mar-2 0-202 3 Klahn Yasir. . Referring Provider: Patel Hadley, [address] [facility] [address], [place], [address]. tel:[phone] [facility], [address] [place], [place] [address], [place], [place], [address], tel:[phone] [place] No Information Mar-1 5-202 3 Klahn Yasir. . Referring Provider: Garth Mcgar[address], [place], [address]. tel:[phone] [facility] [address] [place], [place] [address], [place], [place], [id number], [place] tel:[phone] [place] No Information Mar-1 3-202 3 Brittaney Cooley. . Referring Provider: Garth Mcgarry [facility] [address], [place], [address]. tel:[phone] [facility] [address] [place], [place] [address], [place], [id number], [place] tel:[phone] [place] No Information Mar-0 8-202 3 Brittaney Cooley. . Referring Provider: Garth Mcgar[address], [place], [address]. tel:[phone] Family History Family Member Type Diagnosis Age At Onset No Information Payers Payer name Insurance type Covered constitution party ID Jevon benito(s) Ruddy [facility] WC 00 Social History Type Description Quantity Date Captured Comments Sex Male Smoking Status No Information Chief Complaint And Reason For Visit No Information Reason For Referral Reason For Referral No Information History Of Present Illness Encounter Date Complaint History Of Prese nt Illness No Information Functional Status Date Functional Assessmen t No Information Instructions Date Instruction Additional Infor patrice Giving encouragement to exercise Related to Overweight Giving encouragement to exercise Related to Overweight Giving encouragement to exercise Related to Overweight Giving encouragement to exercise Related to Overweight Giving encouragement to exercise Related to Overweight Giving encouragement to exercise Related to Overweight Assessments Type Assessment Date No Information Patient Care Teams Name Effective Dates (start - stop) Status Members No Information
--- OUTSIDE RECORDS SUMMARY | 2024-09-01 20:22 | XMS_ITS | Encounter Summary ---
Author Organization 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 Name Role Phone Candie Lin MD Primary Care Provider Encounter Details Date Type Department Care Team (Latest Contact Info) Description 01/16/2022 Orders Only [facility] Scanning, Provider Social History Tobacco Use Types Packs/Day Years Used Date Smoking Tobacco: Never Assessed Sex and Gender Information Value Date Recorded Sex Assigned at Not on file Legal Sex Male 9:19 AM [facility]NER Gender Identity Not on file Sexual Orientation Not on file documented as of this encounter Plan of Treatment Not on file documented as of this encounter Procedures Procedure Name Priority Date/Time Associated Diagnosis Comments SCAN - LABS 01/16/2022 documented in this encounter Results * SCAN - LABS (01/16/2022) us Provider Scanning Final Result documented in this encounter Visit Diagnoses Not on filedocumented in this encounter Care Teams Windlace Machine Operator Relationship Specialty Start Date End Date Candie Lin MD PCP - General Orthopedic Surgery 10/22/22 documented as of this encounter
--- OUTSIDE RECORDS SUMMARY | 2024-09-01 20:22 | XMS_ITS | Data Portability ---
Author Organization [employer], [facility] Address [address] [address] Care Team Providers Care Marine Fireman Name Role Phone LILIA JOEL Bilingual Student Tutor Assessment No assessment recorded. Plan of Treatment Reminders Order Date Submit Date Provider Last Modified By Organization Details Last Modified Time Details Appointments None recorded. Lab None recorded. Referral physical therapist referral - WORK COMP 2022 023 PRADIP Not available 16:20:02 Procedures None recorded. Surgeries None recorded. Imaging None recorded. Medication Orders None recorded. Patient TargetsNo targets recorded. Patient InstructionsNo instructions recorded. Reason for Referral Physical Therapist Referral for Concussion with loss of consciousness WORK COMP Referring Physician: Maykel Limon, Phys. [facility] Encounter Date: 11/06/2022 Problems No Known Problems Medical Equipment None Reported. Allergies Allergen ID Allergen Name Allergen Category Reaction Reaction Severity Criticality Documentation Date Start Date Code Code System Note Provider Name and Address Organization Details Recorded Time 53492 Galactose -alpha-1, 3 galactose (substanc e) food,medi cation Not available Not available Not available 10/09/2022 21779 [id number] SNOMED Esme juarez [employer] 3 16:30:32 Medications Name Sig Start Date Stop Date Status Note LastModified by Organization Details LastModified Time cyclobenzap rine 10 mg tablet TAKE 1 TABLET BY MOUTH THREE TIMES A DAY NEEDED FOR MUSCLE SPASM 10/09 completed Not Available Not Available Not Available hydrocodone 5 mg-acetamin ophen 325 mg tablet TAKE 1 TABLET BY MOUTH EVERY 4 HOURS NEEDED 10/09 completed Not Available Not Available Not Available ondansetron 8 mg disintegrat ing tablet DISSOLVE 1 TABLET BY MOUTH ON TONGUE EVERY 8 HOURS NEEDED FOR NAUSEA AND VOMITING 10/09 completed Not Available Not Available Not Available oxycodone-a cetaminophe n 5 mg-325 mg tablet TAKE 1 TABLET BY MOUTH EVERY 6- 8 HOURS NEEDED FOR PAIN active Not Available Not Available No t Available amitriptyli ne 25 mg tablet TAKE 1 TABLET BY MOUTH EVERY DAY active Not Available Not Available No t Available Vitals Date Recorded Body height Body mass index (BMI) Body weight Heart rate Systolic blood pressure Diastolic blood pressure Provider Name and Address Organization Details Last Updated DateTime 3 187.96 cm 28.2 kg/m2 17780.3 2 g 67 /min 134 mm[Hg] 92 mm[Hg] Esme Love [facility] 3 16:30:11 Date Recorded Body height Body mass index (BMI) Body weight Heart rate Systolic blood pressure Diastolic blood pressure Provider Name and Address Organization Details Last Updated DateTime 3 187.96 cm 28.2 kg/m2 94582.3 2 g 66 /min 142 mm[Hg] 88 mm[Hg] Esme Love [employer] [facility] 3 09:45:29 Date Recorded Body height Heart rate Systolic blood pressure Diastolic blood pressure Provider Name and Address Organization Details Last Updated DateTime 12/25/2022 187.96 cm 68 /min 130 mm[Hg] 86 mm[Hg] Naomie Bhatt [facility] 12/25/2022 09:42:36 Social History Question Answer Notes LastModified by Organizat ion Details LastModified Time Tobacco Smoking Status Never Smoker [facility] 10/09/2022 16:36:50 What Is Your Level Of Alcohol Consumption? None Information not available 10/09/2022 Are You Currently Employed? Yes Information not available 10/09/2022 What Is The Highest Grade Or Level Of School You Have Completed Or The Highest Degree You Have Received? 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 Information not available 10/09/2022 Sex: Unknown Functional Status None recorded. Mental Status None recorded. Family History Relationship Description Onset Age of this Age Resolved Age Notes LastModified by Organization Details LastModified Time Unspecified Relation Diabetes mellitus Not available 2022 16:31:47 Unspecified Relation Hypertensive disorder Not available 2022 16:31:55 Unspecified Relation Heart disease Not available 2022 16:32:02 Unspecified Relation Cerebrovascu lar accident Not available 12/2022 16:32:09 Medical History Condition Response Other Cancer N HIV or AIDS N Coronary Artery Disease N Gout N Kidney Stones N Hyperthyroidism N Breast Cancer N Hernia N Head Trauma/Injury N Lung Cancer N Blood Clots N COPD N Depression N Hypothyroidism N Lung Disease N Pacemaker N Parkinson's N Anxiety Disorder N Multiple Sprains N Arthritis N Alcohol / Substance Abuse N Kidney Cancer N Cancer N Stroke N Melanoma N Neck Injury N Leg or Foot Ulcers N High Cholesterol N Skin Cancer N Liver Disease N Rheumatoid Arthritis N Headaches N Fibromyalgia N Concussion N Kidney Disease N Heart Problems N Scoliosis N Chronic use of Pain Medication N Prostate Cancer N Migraines N Thyroid Problems N Alzheimers N DVT N Autoimmune Disorder N Anemia N Multiple Sclerosis N Tendon Tear N Ulcers N Heart Attack (SC) N Osteopenia N Diabetes N Bleeding Disorder N Seizures/Epilepsy N Cardiac Stent N Tuberculosis N A-FIB N Lymphoma N Urinary Tract Infection N Back Problems N Diverticulitis N Dementia N Asthma N Lupus N Peripheral Vascular Disease N Sleep Apnea N Sleep Disorder N GERD/Reflux N Hepatitis N Aneurysm N Thyroid Cancer N Heart Disease N Pulmonary Embolism N Hypertension N Osteoporosis N Past Encounters Encounter ID Performer Location Encounter Start Date Encounter Closed Date Diagnosis/Indication Diagnosis SNOMED-CT Code Diagnosis ICD10 Code Diagnosis Note [id number] Stanislav Limon, DO [facility] [address] [facility] ,[address] [facility] [place] [address] 10/09/2022 16:29:36 10/10/2022 09:28:23 Concussion with loss of consciousness [id number] S06.0X9A I reviewed the records that were available, evaluated the patient and within a reasonable degree of medical certainty I do believe based on the patient's symptoms that are seen as well as the patient's examinatio n that he did sustain a concussion likely with a loss of consciousn ess based on the mechanism of injury. The patient reported in initial emergency room evaluation that he did not lose consciousn ess but with the combinatio n of symptoms and injuries it is very likely he did. Regardless , this would not change the treatment nor the prognosis for this patient. I do believe that the patient's treatment to this point has been appropriat e and necessary. He should continue the treatment under the direction of the other providers at this time. I do agree with the physical therapy that he is doing at this time and I would recommend him continue that for now. We did discuss possible medication adjuncts for his headaches and if he would so desire we can certainly have him start on amitriptyl ine 25 mg nightly. He will hold off on this for now but if he would like to start that we will certainly do so. I do believe he is capable of sedentary work duties from the perspectiv e of the head injury at this time and I did fill out a work status today stating such. We will see him back in 4 weeks time to reevaluate unless he has any problems in the interim. [id number] Stanislav Limon, DO [facility] [address] [facility] ,[address] [place] [address] 11/06/2022 09:05:19 11/10/2022 15:04:18 Concussion with loss of consciousness [id number] S06.0X9D I discussed this with the patient today. We will return him to the physical therapy at this time as he has been making good progress. Eventually he will be able to begin additional therapy and then transition back to regular work duties but he needs to be cleared by all other providers prior to that. We will discontinu e the amitriptyl ine as it may be contributi ng to the symptomato logy that he is describing during the day. If he has any other bouts of feeling like he is going to pass out he is to contact me and we will further evaluate this. I have no restrictio ns from my perspectiv e and he should follow any restrictio ns per the other providers. I did fill out a work status today stating such. We will see him back in 6 to 8 weeks. [id number] Stanislav Limon, DO [facility] [address] [place] [address] 12/25/2022 09:30:38 12/25/2022 13:55:38 Concussion with loss of consciousness [id number] S06.0X9D I discussed with the patient today and he has accomplish ed the goals of his treatment for his head injury. I do not believe additional evaluation or treatment will be necessary for this component of his care. He can continue regular work duties from my perspectiv e but should follow any restrictio ns from his other providers. I did fill out a work status today. He is at maximum medical improvemen t from my perspectiv e. Health Concerns Section Related Observation LastModified by Organization Detai ls LastModified Time None Recorded Concern Status LastModified by Organization Details LastModified Time None Recorded Advance Directives Directive None Recorded Payers Encounter Date Sequence Insurance Name Policy Number Policy Law Covered Member ID Law Member ID Guarantor Name 10/06/2022 [facility] [employer] [facility] 11/06/2022 [facility] [employer] [facility] Notes Date Note Type Note Provider Name and Address Organization Details Recorded Time 3 text/html Patient is a 32-year-old male who is seen today for evaluation of his reported work-related injury. Patient was reportedly in his usual state of health when on 05/12/2022 he fell 15 feet from a retaining wall. He did have a loss of consciousness but does not have amnesia of anything leading up to this. He was seen initially at [facility] where he reported no loss of consciousness but mainly had complaints of jaw pain and neck pain. He had evaluations including CT of the head which was negative, CT of the cervical spine that showed a midline thin linear lucency sagittally oriented within the posterior elements of C4 which was nonspecific but there was no acute malalignment. Additionally a CT of the facial bones which was negative and a CT of the chest abdomen and pelvis that showed an acute compression deformity of the endplate of T5. The patient was evaluated by neurosurgery and fitted with a TLSO and discharged. Subsequently the patient has had evaluations including a Dr. Patel Hadley from a spinal surgery perspective for the neck and back pain with radiating pain into the right hip and right leg. He did end up having an MRI of his cervical spine which was essentially negative. He has had follow-up films as well including CTs of the cervical, thoracic, lumbar spine on 05/23/2022 which revealed mild degenerative disc and joint disease at L5-S1 and the acute superior endplate compression fracture of the T5 vertebral body with a loss of approximately 25% of height. MRIs performed at that time also revealed similar findings. The patient was released to light duty on 05/26/2022 but was continuing to wear the TLSO. The patient then was evaluated by Dr. Mcgill on 06/20/2022 with complaints of tinnitus, increased emotions, headaches, visual complaints, agitation, dizziness and was taken off of work pending additional appointments. Due to the ongoing pain and discomfort in the low back and groin on the right side the patient was seen by Dr. Patel Cramer on 06/20/2022 and an MRI arthrogram was recommended for labral pathology and based on the findings of this the patient did undergo right hip arthroscopic labral repair with cam resection and iliopsoas bursectomy which was performed on 07/08/2022. The patient continue to follow with Dr. Casillas in the postoperative period but also Dr. Casillas evaluated the patient further on 07/28/2022 for bilateral numbness and tingling in the ring and small fingers and did perform an ulnar nerve steroid injection. The patient had no improvement with that and on follow-up on 08/25/2022 scheduled for planned cubital tunnel release. The patient has had audiology as well follow-up from hearing loss on 07/25/2022. The patient did have neuropsychologic testing which was performed on 07/01/2022. 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 Also depression and anxiety were definitely noted in this testing. At the patient's last follow-up with Dr. Mcgill on 08/01/2022 the patient was reporting ongoing cognitive deficits, headaches, dizziness, visual complaints and was referred to outpatient psychology. The records were reviewed in detail but only the pertinent information was reviewed above. Today the patient is reporting ongoing symptoms specifically with the right arm, right hip as well as the left arm all of which are being evaluated by other physicians. The patient reports he is currently 6 dill pending additional psychology services but is seeing [facility] through his work. He has been started in physical therapy as well and actually feels that this is going fairly well but still having some difficulty. He is noticing ongoing difficulties with headaches that start in the back and go forward and into the forehead region. He has pain in the upper back and discomfort associated with this. He has stiffness as well associated with this. He has a difficult time with concentration and focus as well. [place], [place], [address], [facility] 10/10/2022 20:03:55 3 text/html Patient is a 32-year-old male who is known to me having been followed for his work-related injury. Since last time I have seen him he continues to work on returning to his work duties from a musculoskeletal perspective. He does have surgery on the left wrist tomorrow. He is still having back pain but this is stabilizing somewhat. His hip is at MMI at this point. Patient states he is irritable but mainly because of how long the treatment itself is taking. He is having some moments when he is anxious and he states he has never really been anxious before. He notices this with activities such as heavy lifting as he is trying to get back into some exercise. He states he almost blacked out at one point. We did discuss this and it sounds as though he may actually be holding his breath. He does feel the amitriptyline may be helped some but it makes him feel very groggy as well. No other [place] [address], [place], [address], [employer] 11/09/2022 11:09:42 3 text/html Patient is a 32-year-old male who is known to me having been followed for his work-related head injury. Since last time I have seen him he states he is doing much better overall. He still has the occasional headache about 2 times a week but they are mostly associated with his neck pain and discomfort. He states they are mild however and he does not really even need to take anything for these. He felt the physical therapy made a difference with his vision, dizziness, concentration. In review of the therapy notes he made good progress and has accomplished his goals of his therapy. He denies any other new head related complaints at this time. He continues to follow [place] [address] [address] [facility] [address], [place], [address], [facility], [facility] 12/25/2022 16:10:57
--- OUTSIDE RECORDS SUMMARY | 2024-09-01 20:22 | XMS_ITS | Continuity of Care Document ---
Author Organization [facility] Address [place], [place] [address] Care Team Providers Care Heating And Cooling Systems Engineer Name Role Phone Angélica Mcgill MD Unavailable Unavailable Allergies, Adverse Reactions, Alerts Substance Reaction Status Criticality Alpha-Gal (Balhrcwnq-Fzbpp-1,3-Galactose) Active No Information Medications Medication Instructions Dosage Effective Dates (start - stop) Status Comments tramadol 50 mg tablet take 1 tablet (50M G) by oral route every 6 hours as needed 50 MG - Active Procedures Procedure Date OFFICE/OUTPATIENT VISIT EST OFFICE/OUTPATIENT VISIT EST OFFICE/OUTPATIENT VISIT EST OFFICE/OUTPATIENT VISIT EST Advance Directives Directive Yes / No Effective Date File Name No Information Encounters Encounter Description Practice Location Reason(s) For Visit Diagnoses Date Provider Providers Copied on Encounter [facility], [place], [address], [facility] No Information 3 Artem Lindsay. [address], [place], [place], [id number] . tel: [phone] OFFICE/OUTPA TIENT VISIT EST [facility], [place], [address], [facility] Fall (chief complaint) Body mass index [BMI] 28.0-28.9, adultConcussi on with unknown loss of consciousness status, sequelaPTSD (post-traumat ic stress disorder)Midl ine thoracic back pain, unspecified chronicityAcu te post-traumati c headache, not intractableBi lateral tinnitusRight hip painDizziness Compression fracture of T5 vertebra, sequela 3 Artem Lindsay. [address], [place], [place], [id number] . tel: [phone] OFFICE/OUTPA TIENT VISIT EST [facility], [place], [address], [facility] Fall. (chief complaint) Concussion with unknown loss of consciousness status, sequelaMidlin e thoracic back pain, unspecified chronicityAcu te post-traumati c headache, not intractablePT SD (post-traumat ic stress disorder)Body mass index [BMI] 28.0-28.9, adultRight hip painBilateral tinnitusDizzi nessCompressi on fracture of T5 vertebra, sequela 3 Artem Lindsay. [address], [place], [place], [id number] . tel: [phone] OFFICE/OUTPA TIENT VISIT EST [facility], [place], [address], [facility] Fall (chief complaint) Body mass index [BMI] 28.0-28.9, adultConcussi on with unknown loss of consciousness status, sequelaCompre ssion fracture of T5 vertebra, sequelaMidlin e thoracic back pain, unspecified chronicityAcu te post-traumati c headache, not intractablePT SD (post-traumat ic stress disorder)Bila teral tinnitusDizzi nessRight hip pain 3 Artem Lindsay. [address], [place], [place], [id number] . tel: [phone] OFFICE/OUTPA TIENT VISIT EST [facility], [place], [address], [facility] Fall (chief complaint) Body mass index [BMI] 28.0-28.9, adultConcussi on with unknown loss of consciousness status, sequelaMidlin e thoracic back pain, unspecified chronicityCom pression fracture of T5 vertebra, sequelaOther closed nondisplaced fracture of fourth cervical vertebra, sequelaAcute post-traumati c headache, not intractableDi zzinessBilate ral tinnitusPTSD (post-traumat ic stress disorder)Righ t hip painInsomnia, unspecified type 3 Artem Lindsay. [address], [place], [place], [id number] . tel: [phone] [facility], [place], [address], [place] [facility] Fall. (chief complaint) Body mass index [BMI] 28.0-28.9, adultPTSD (post-traumat ic stress disorder)Conc ussion with unknown loss of consciousness status, sequelaMidlin e thoracic back pain, unspecified chronicityDiz zinessAcute post-traumati c headache, not intractableBi lateral tinnitusOther closed nondisplaced fracture of fourth cervical vertebra, sequelaCompre ssion fracture of T5 vertebra, sequela 0 3 Artem Lindsay. [address], [place], [place], [id number] . tel: [phone] [facility], [address] [facility] [address], [place], [address], [place] tel:[phone] [facility] O Marybeth Pain in joint involving shoulder region 2 Nelda Le. [address] [facility] [address], [place], [address]. tel: [phone] Family History Family Member Type Diagnosis Age At Onset No Information Payers Payer name Insurance type Covered constitution party ID Authoriza tion(s) No Information Social History Type Description Quantity Date Captured Comments Alcohol Use Details Unknown Caffeine Use Details Unknown Tobacco Use Status No Information Smoking Status No Information Sex Male Chief Complaint And Reason For Visit No Information Reason For Referral Reason For Referral No Information Plan Of Treatment Date Type Action Status Referral Referred To: Alex Gomez Ordered: Referrals: Psychiatry. Alex Gomez. Evaluate and treat ordered History Of Present Illness Encounter Date Complaint History Of Prese nt Illness Fall Andrzej is being se en today in follow up. 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 Andrzej is doing well. He tells me that he had the surgery on his right arm to decompress the ulnar nerve. He tells me that the surgery went well, without any complications. He is looking forward to having the same surgery on the left. Andrzej was told that it will take about two months for total recovery. He has seen a concussion specialist (Dr. Limon) who says he still has concussion symptoms. Andrzej tells me that the specialist put him on amitriptyline to help him stay asleep at night but he says that it is not working. He tells me that he has no problem falling asleep but staying asleep is the issue. He admits to continuing experiencing light headedness when he stands up. In addition, he complains of fogginess in his thinking, especially when he is overstimulated. The patient tells me that he has stopped socializing because he does not have the mental clarity to engage in social activities and the mental fogginess gets exacerbated. He continues to have occasional headaches. These involve the neck and temporal areas. Reading and using the phone bring about the headaches. He takes Aleve on occasion, as he does not like taking medications. He admits to low energy. He has been trying cold baths, which he tells me help getting moving during the day. Andrzej tells me that he has been getting angry easily. He is working with [employer] professional. He tells me that he is agreeable to seeing a psychologist and a psychiatrist, as he knows that it could be issues related to PTSD and to the traumatic brain injury. The patient is also experiencing dizziness when going from sit to stand and in the shower. He tells me that Dr. Limon has prescribed vestibular therapy. Andrzej tells me that his right hip is doing well. He is using a bike and doing some running. He does tells me that he is tight and sore after using the treadmill. Fall. Andrzej is being se en today in follow up. 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 Since we saw Andrzej last, he was evaluated by Dr. Merrill Wheeler, hand surgeon, for evaluation of bilateral hand numbness. The patient tells me that he was diagnosed with bilateral ulnar neuropathies, and he is scheduled for ulnar transposition surgeries. The first surgery is on September 26, 2022. In addition, he was seen by Ramiro Medel, a psychiatrist, for an GABRIEL. Andrzej continues to experience nightmares, difficulty sleeping, sweating in his sleep. He tells me that his mood is still off . He sees his EAP (Employee Assistance Program) counselor regularly, as he is dealing with trauma from a prior work related incident were he saw a coworker . He is doing ice baths and using a sauna, which he tells me help with his mood, as well as with pain. He tells me that the upper back and neck pain have improved. He is no longer wearing his brace. The low back does hurt with prolonged sitting or standing. Therapy also helps the pain. He os exercising on a daily basis. He continues to experience dizziness, though he adits that this is improving. He rarely experience dizziness when going from sit to stand. He is no longer dizzy when in the shower. He says that the headaches are better. These had resolved for a while, but he has recently started to experienced them again. He says that he has been eating healthy and has eliminated alcohol and caffeine, and has started on oa MVI, hoping that these changes will help the headaches, as well as his overall health. His right hip pain is better with therapy. He tells me that the pain in the right hip comes and goes. He can was and jog for about 20 min before the pain starts. He has noticed that since he has been doing therapy he can do more activities, such as jogging and squats. He denies any new or worsening pain. No falls, or hospital visits. The patient tells me that he wants to return to work in the future. Fall Andrzej is being se en today in follow up. 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 On May 122022 he had fallen 12 feet off of a retaining wall. Since we last saw Andrzej, he had right hip surgery by Dr. Patel Casillas. The patient had been experiencing right hip pain. He tells me that he was diagnosed with a labrum tear and this was repaired on 07/08/22. The patient has been doing therapy 3X a week in [place]. He says that the pain is still being aggravated with activity. He was told that the right sided low back pain that he had been experiencing could have been related to the labrum tear and inflammation in the hip. He says that he is still sore but tolerated the surgery well. The patient says that the headaches have, for the most part, resolved. He saw an eye doctor who diagnosed him floaters. He was evaluated by ENT for the tinnitus. Andrzej says that he was told that there was not much to do. He was recommended to wait 6 months. If it does not improve, Andrzej tells me that he could try a device that will distract him so he does not notice the ringing as much. He tells me that the dizziness is better. He notices it occasionally in the shower and at times when going from sit to stand. Andrzej tells me that he is eating healthy. He is only able to sleep about 5 hours at a time due to back pain. He tells me that when he lays down he is experiencing pain between the shoulder blades. He is using a heating pad, which provides some relief. He says that then he forces himself to sleep a few more hours. He says that these days he needs 9 hours of sleep to feel rested. He was taking Naproxen for the hip pain, and this medications was also helping the upper back pain. He is out of this medication at this time. He would let me know if he needs me to prescribe more for him. He would want to go back to doing jiu jitsu and Cross Fit. He tells me that he is worried that the low back pain is going to interfere with his activity. He has followed with Dr. Hadley, who has ordered a follow up MRI, as he is still experiencing low back pain. The patient has also been evaluated for numbness in the 4th and 5th digits. The symptoms present themselves after he has his elbows bent for 5-10 minutes. He did have an EMG/NCS which apparently revealed bilateral ulnar neuropathies. He is being seen by Dr. Wheeler for this issue. He tells me that he did not have any numbness or pain prior to the accident. He is trying to sleep with his elbows extended to prevent eliciting the symptoms. He did receive cortisone injections to the elbows on 07/28/22, but has not yet noticed an improvement. Andrzej underwent a neuropsychological evaluation by Dr. Callaway on 07/01/22. Per Dr. Callaway's report results provided equivocal support for residual postconcussive sequelae. Primary, his recovery from multiple traumatic injuries has been complicated by significant mood related problems. In addition, his residual physical discomfort and pain are also likely contributory-resulting in interference effects on higher cognitive skills (attention and speed) rather than memory per se. He continues to see a counselor through work regarding PTSD. He is agreeable to psychological evaluation. He tells me that he prefers this than a psychiatrist that may prescribe medication, as he would like not to have to take medicines if possible. Elie Donnelly is being se en today in follow up. 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 On May 122022 he had fallen 12 feet off of a retaining wall. The patient tells me that he continues to have several issues. He continues to experience ringing of the ears. He is scheduled to be seen by an ENT on July 25 (Dr. Banks). He has had difficulty sleeping due to the ringing of the ears. Also the fact that he starts thinking too much. 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 He is scheduled to see a psychiatrist in the upcoming days. Andrzej tells me that he enjoys reading but is having problems reading. He cannot focus enough to comprehend. He also feels that his vision is worse and reading is difficult. He is scheduled to see Dr. Maldonado Carrillo, an refinery technician, in the upcoming days. He continues to experience morning headaches. He says that it is no longer every morning, but only on random days. He feels that he gets agitated easily. He says that he does not want to lose his temper but finds that he does. He finds himself having limited patience with the kids. Joe has 2 children ages 6 and 3. He tells me that his qstjwz-bg-dmg has been taking the kids to give him and his a break. He is afraid that sometimes when he stays away, he is detaching too much . He also tells me that he has problems remembering. He is not sure if it is related to a concussion or to the poor sleep. He says that his has to remind him to do things, which was something that never happened in the past. He is writing things down to remember. The patient has neuropsychological test scheduled. In addition, he finds himself being guarded. He tells me that it's hard to explain but does not feel that his personality is the same as it used to be. Says that he gets strange thoughts that suddenly pop up, weird things , like a skull cracking . He also says that he makes, what he describes as, abnormal associations. He is scheduled to see Dr. Callaway for neuropsychological evaluation in the upcoming days. He continues to wear a back brace. He is following with Dr. Hadley. He continues to experience dizziness. The patient is scheduled to see Dr. Harding for a left L5-S1 steroid injection on the due to nerve pain. He is seeing Dr. Patel Casillas for evaluation of his right hip which has been catching. Fall. Andrzej is being se en in our office today for a new a patient evaluation. 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 Andrzej tells me that on May 122022, while pursuing a suspect, he fell ~15 feet off of a retaining wall. The patient admits striking his head and being dazed. He says that if there was LOC it was brief. Following the fall, the patient was taken to [facility]. Radiological examinations revealed ?C4 fracture and a T5 compression fracture. The patient was evaluated by NSGY. He was placed on a TLSO and a cervical collar. He had an MRI earlier today to evaluate the findings in the cervical spine CT. The patient tells me that following the fall, he has been experiencing dizziness, headache, impaired memory, ringing of the ears, difficulty sleeping and back pain. He is able to walk as much as he wants. The patient tells me that he has a follow up scheduled with the back doctor. Functional Status Date Functional Assessmen t No Information Instructions Date Instruction Additional Infor patrice Giving encouragement to exercise Related to Body mass index [BMI] 28.0-28.9, adult Giving encouragement to exercise Related to Body mass index [BMI] 28.0-28.9, adult Giving encouragement to exercise Related to Body mass index [BMI] 28.0-28.9, adult Giving encouragement to exercise Related to Body mass index [BMI] 28.0-28.9, adult Giving encouragement to exercise Related to Body mass index [BMI] 28.0-28.9, adult Assessments Type Assessment Date No Information Patient Care Teams Name Effective Dates (start - stop) Status Members No Information
--- OUTSIDE RECORDS SUMMARY | 2024-09-01 20:22 | XMS_ITS | Encounter Summary ---
Author Organization [facility] Address [address] [facility] [address] [place] [address] Phone Care Team Providers Care Marketing Team Lead Name Role Phone Candie Lin MD Primary Care Provider Encounter Details Date Type Department Care Team (Late st Contact Info) Description 08/29/2024 Orders Only [facility] [address] [facility] [address] [place] [phone] Ni Barrios MD [address] [facility] [place] [address] Social History Tobacco Use Types Packs/Day Years Used Date Smoking Tobacco: Never Smokeless Tobacco: Never AUDIT-C Answer Date Recorded Q1: How often do you have a drink containing alcohol? Never 12/08/2023 Q2: How many drinks containi ng alcohol do you have on a typical day when you are drinking? 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 Gender Identity Not on file Sexual Orientation Not on file documented as of this encounter Plan of Treatment Not on file documented as of this encounter Procedures Procedure Name Priority Date/Time Associated Diagnosis Comments CHG SEMEN AVNI PRESENCE&/MOTILITY SPRM HUHNER Routine 08/29/2024 10:39 AM CDT documented in this encounter Results * CHG SEMEN AVNI PRESENCE&/MOTILITY SPRM MOHAN (08/29/2024 10:39 AM CDT) us Ni Barrios MD [facility] Final Result documented in this encounter Visit Diagnoses Not on filedocumented in this encounter Care Teams Marketing Team Lead Relationship Specialty Start Date End Date Candie Lin MD PCP - General Orthopedic Surgery 10/22/22 documented as of this encounter
--- OUTSIDE RECORDS SUMMARY | 2024-09-01 20:22 | XMS_ITS | Encounter Summary ---
Author Organization [facility] Address [address] [facility] [address] [place] [address] Phone Care Team Providers Care Bar Pointer Name Role Phone Candie Lin MD Primary Care Provider Encounter Details Date Type Department Care Team (Late st Contact Info) Description 08/29/2024 Results Follow-Up [facility] [address] [facility] [address] [place] [phone] Ni Barrios MD [address] [facility] [place] [address] Social History Tobacco Use Types Packs/Day Years [...] file 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
--- OUTSIDE RECORDS SUMMARY | 2024-09-01 20:22 | XMS_ITS | Clinical Summary ---
Author Organization [facility] Address [address] [place] [address] Care Team Providers Care Elevator Examiner Name Role Phone Unavailable Primary Care Provider Unavailabl e Source Comments [facility],non-owned Affiliates and Associated Physician Practices is amultiple site organization consisting of ambulatory clinics and hospital sitesin [place], [place], [place] and [place]. This disclosure is being madepursuant to the Care Everywhere program and may not contain all information available regarding this patient. 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 Alwaysverify current medications with the patient. HYDROcodone-ac etaminophen (Centereach) 5-325 MG tablet Take 1 (one) tablet by mouth every 4 hours as needed 12 tablet 3 Active Additional Information Patient not taking.Reported on 07/25/2022 acetaminophen (Tylenol) 325 MG tablet Take 2 (two) tablets by mouth every 6 hours Maximum allowable Acetaminophen amount = 4 Grams (4000 mg) / 24 hours. 3 Active Additional Information Patient not taking.Reported on 07/25/2022 ondansetron, disintegrating , (Zofran ODT) 8 MG tablet Take 1 (one) tablet by mouth every 8 hours as needed for Nausea/Vomiting Allow tablet to dissolve on the tongue 20 tablet 3 Active Additional Information Patient not taking.Reported on 07/25/2022 cyclobenzaprin e (Flexeril) 10 MG tablet Take 1 (one) tablet by mouth 3 times daily as needed for Muscle Spasms 20 tablet Active Additional Information Patient not taking.Reported on 07/25/2022 Active Problems Problem Noted Date Diagnosed Date Other closed nondisplaced fr acture of fourth cervical vertebra, initial encounter 05/12/2022 Closed wedge compression fra cture of T5 vertebra, initial encounter 05/12/2022 Immunizations Immunization Administration Dates Next Due TDAP (7yrs+) 05/12/2022,12/25/2010 Family History Medical History Relation Name Comments Diabetes Maternal Grandfather Diabetes Other uncles Relation Name Status Comments Maternal Grandfather Other Social History Tobacco Use Types Packs/Day Years Used Date Smoking Tobacco: Never Alcohol Use Standard Drinks/Week Comments Yes 0 (1 standard drink = 0.6 oz pur e alcohol) occas Hunger Vital Sign Answer Date Recorded Within the past 12 months, y ou worried that your food would run out before you got the money to buy more. Never true 05/13/19 23 Within the past 12 months, t he food you bought just didn't last and you didn't have money to get more. 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 Gender Identity Not on file Sexual Orientation Not on file Last Filed Vital Signs Vital Sign Reading Time Taken Comments Blood Pressure 139/70 05/13/2022 1:51 PM CATTLE MANAGER Pulse 63 05/13/2022 1:51 PM CATTLE MANAGER Temperature 36.4 C (97.5 F) 05/13/2022 1:51 PM CATTLE MANAGER Respiratory Rate 18 05/13/2022 1:51 PM CATTLE MANAGER Oxygen Saturation 98% 05/13/2022 1:51 PM CATTLE MANAGER Inhaled Oxygen Concentration - - Weight 98.9 kg (218 lb) 07/25/2022 3:05 PM CDT Height 188 cm (6' 2 ) 07/25/2022 3:05 PM CDT Body Mass Index 27.99 07/25/2022 3:05 PM CDT Plan of Treatment Health Maintenance Due Date Last Done Comments HIV SCREENING 2003 HEPATITIS C SCREENING 06/23/2006 HEPATITIS B VACCINE (1 of 3 - 19+ 3-dose series) 2007 COVID-19 VACCINE ( - 2023-2 5 season) 2024 DEPRESSION SCREENING 05/04/2024 INFLUENZA VACCINE (Season Ended) 2025 DTAP/TDAP/TD VACCINES (3 - T d or Tdap) 05/12/2032 05/12/2022, 12/25/2010 ZOSTER VACCINE (1 of 2) 2038 HIB VACCINE Aged Out No longer eligi ble based on patient's age to complete this topic HPV VACCINE Aged Out No longer eligi ble based on patient's age to complete this topic MENINGOCOCCAL (Group B) VACCINE SHARED DECISION-MAKING Aged Out No longer eligible based on patient's age to complete this topic MENINGOCOCCAL GROUPS A/C/Y/W VACCINE Aged Out No longer eligible b ased on patient's age to complete this topic PNEUMOCOCCAL VACCINE Aged Out No long er eligible based on patient's age to complete this topic Insurance Attn: [place] [address] PAYOR GENERIC Advance Directives * Full Code (Latest Code Status on File) Date Activated Date Inactivated Comments 05/12/2022 8:44 PM 05/13/2022 8:01 PM
--- OUTSIDE RECORDS SUMMARY | 2024-09-01 20:22 | XMS_ITS | Referral Summary ---
Author Organization [facility] Medical [facility] 2 Address [address] [place] [address] Care Team Providers Care Accountant Tax Name Role Phone Candie Lin MD Primary Care Provider Encounters Date Type Department Care Team Description 08/29/2024 Results Follow-Up [facility] Surgery [address] [facility] Medical Office Building, [address] [place] [address] Ni Barrios MD 08/29/2024 Orders Only [facility] Surgery [address] [facility] Office [facility], [address] [place] [address] Ni Barrios MD from Last 3 Months Allergies Active Allergy Reactions Criticality Noted Date Comments 1 Alpha-Gal Unknown Dairy Tolerance (Aprxpbnmc-Nipzl-1,3-G alactose) Diarrhea,Other (See comments) Low 05/13/2022 Alpha gal syndrome Milk Containing Products (Dairy) Hives Medium 05/13/2022 Alpha gal syndrome Medications acetaminophen (TYLENOL) 325 mg tablet Take 2 tablets (650 mg total) by mouth every 6 (six) hours 3 Active testosterone cypionate (DEPO-TESTOTERO NE) 200 mg/mL injection INJECT 1/2 ML (100 MG) INTO MUSCLE EVERY WEEK 4 Active ALPRAZolam (Xanax) 1 mg tabletIndicatio ns:pre procedure Take 1 tablet (1 mg total) by mouth once for 1 dose 30 min prior to procedure 1 tablet 4 Active meloxicam (MOBIC) 15 mg tablet TAKE 1 TABLET (15 MG TOTAL) BY MOUTH DAILY. 30 tablet 3 4 03/14/20 25 Active Active Problems Problem Noted Date Diagnosed Date Skin abnormality 01/06/2024 Cyst, dermoid, arm, left 12/02/2023 Cyst of skin 11/11/2023 Assessment & Plan (11/11/2023 10:06 AM CDT): Non-infected cysts, multiple. Discussed removal in the OR due to size and number, patient would like to avoid this due to cost, we will set up office visits for excision. 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 Gender Identity Not on file Sexual Orientation Not on file Last Filed Vital Signs Vital Sign Reading Time Taken Comments Blood Pressure 121/75 01/12/2024 2:16 PM CDT Pulse 62 01/12/2024 2:16 PM CDT Temperature 36.3 C (97.3 F) 01/12/2024 2:16 PM CDT Respiratory Rate 18 12/08/2023 8:41 AM CDT Oxygen Saturation 96% 01/12/2024 2:16 PM CDT Inhaled Oxygen Concentration - - Weight 104.3 kg (230 lb) 01/12/2024 2:16 PM CDT Height 188 cm (6' 2 ) 01/12/2024 2:16 PM CDT Body Mass Index 29.53 01/12/2024 2:16 PM CDT Plan of Treatment Not on file Procedures Procedure Name Priority Date/Time Associated Diagnosis Comments CHG SEMEN AVNI PRESENCE&/MOTILITY SPRM HUHNER Routine 08/29/2024 10:39 AM CDT from Last 3 Months Results * CHG SEMEN AVNI PRESENCE&/MOTILITY SPRM HUHNER (08/29/2024 10:39 AM CDT) Ni Barrios MD [facility] Final Result from Last 3 Months Insurance [facility] CHOICE PLUS [facility] [place] [address] WORKERS COMPENSATION GENERIC WORKERS COMPENSATION GENERIC Care Teams Accountant Tax Relationship Specialty Start Date End Date Candie Lin MD PCP - General Orthopedic Surgery 10/22/22
--- OUTSIDE RECORDS SUMMARY | 2024-09-01 20:22 | XMS_ITS | Clinical Summary ---
Author Organization [facility] Address [address] [place] [address] Phone Care Team Providers Care Mold Stamper Name Role Phone Willie Guzman MD Primary Care Provider [phone] Encounters Date Type Department Care Team Description 06/28/2024 External Device Data STL ABSTRACTION Provider, Abstract from Last 3 Months Social History Tobacco Use Types Packs/Day Years Used Date Smoking Tobacco: Never Assessed Sex and Gender Information Value Date Recorded Sex Assigned at Not on file Legal Sex Male 1:21 PM CDT Gender Identity Not on file Sexual Orientation Not on file Plan of Treatment Health Maintenance Due Date Last Done Comments DTAP/TDAP/TD VACCINES (1 - Tdap) 2007 HEPATITIS B VACCINES (1 of 3 - 19+ 3-dose series) 2007 INFLUENZA VACCINE (#1) 2023 HPV VACCINES Aged Out No longer eligi ble based on patient's age to complete this topic Care Teams Mold Stamper Relationship Specialty Start Date End Date Willie Guzman MD PCP - General Family Practice 07/12/14
--- OUTSIDE RECORDS SUMMARY | 2024-09-01 20:22 | XMS_ITS | Encounter Summary ---
Author Organization [facility] Address [address] [place] [address] Phone Care Team Providers Care Excel Analyst Name Role Phone Candie Lin MD Primary Care Provider Reason for Referral * Procedure (Routine) - Closed Specialty Diagnoses / Procedures Referred By Contac t Referred To Contact Diagnoses Tick bite, unspecified site, initial encounter Procedures Pulmonary Function Test -[facility] Adult PFT Lab- [facility]; Standard; Spirometry, Spirometry w/bronchodilator, DLCO and Lung Volumes Hi Fajardo MD [address] [place] [address] Phone: tel: fax: Referral ID Status Reason Start Date Expiration Date Visits Re quested Visits Authorized [id number] Closed 11/21/2022 12/21/2023 1 1 Reason for Visit * Procedure (Routine) - Closed Specialty Diagnoses / Procedures Referred By Contac t Referred To Contact Diagnoses Tick bite, unspecified site, initial encounter Procedures Pulmonary Function Test -[facility] Adult [facility]FT Lab- [facility]; Standard; Spirometry, Spirometry w/bronchodilator, DLCO and Lung Volumes Hi Fajardo MD [address] [place] [id number] Phone: tel: fax: Referral ID Status Reason Start Date Expiration Date Visits Re quested Visits Authorized [id number] Closed 11/21/2022 12/21/2023 1 1 Encounter Details Date Type Department Care Team (Latest Contact Info) Description 12/09/2022 7:54 AM CDT Hospital Encounter [facility] PFT Lab [address] [facility] Medical Office Building [address] [place] [address] Tick bite, unspecified site, initial encounter Social History Tobacco Use Types Packs/Day Years [...] on file 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 FVC %PRE PRED 108 % [facility] FEV1 PRE 5.19 L [facility] FEV1 %PRE PRED 108 % [facility] FEV1/FVC PRE 81.4 % [facility] FRC PL PRE 4.05 L [facility] FRC PL %PRE PRED 108 % [facility] RV PRE 1.90 L [facility] RV %PRE PRED 102 % [facility] TLC PRE 8.17 L [facility] TLC %PRE PRED 109 % [facility] DLCO PRE 40.8 ml/min/mmH g [facility] DLCO %PRE PRED 117 % [facility] Anatomical Region Laterality Modality PFT 12/09/2022 8:04 AM CDT Impressions 12/10/2022 10:15 AM CDT There is no ventilatory defect. There is no impairment of alveolar gas exchange by DLCO. The attending pulmonary physician certifies a physician presence in the [facility] Suite during the administration of aerosolized bronchodilator. The attending pulmonary physician certifies that he/she has reviewed and interpreted the graphic and numerical data of this pulmonary function study and agrees with the written final report. The lower limit of normal for PO2 and %HbO2 is age dependent. However, the [facility] Pulmonary Function Laboratory defines hypoxemia as a PO2 <55 or a %HbO2 <89. Narrative 12/10/2022 10:15 AM CDT PFT performed at:->[facility] Adult PFT Lab- [facility] Procedure:->Standard Standard:->Spirometry, Spirometry w/bronchodilator, DLCO and Lung Volumes Pulmonary Function Test Interpretation SPIROMETRY: Spirometry is within normal limits. FLOW VOLUME LOOPS: The flow volume loop is normal LUNG VOLUMES: TLC measured by plethysmography is normal. DIFFUSING CAPACITY: The diffusing capacity is normal. [facility] Kris Fajardo MD PFT ORDERABLES Final Result documented in this encounter Visit Diagnoses Diagnosis Tick bite, unspecified site, initial encounter documented in this encounter Care Teams Excel Analyst Relationship Specialty Start Date End Date Candie Lin MD PCP - General Orthopedic Surgery 10/22/22 documented as of this encounter
--- OUTSIDE RECORDS SUMMARY | 2024-09-01 20:22 | XMS_ITS | Clinical Summary ---
Author Organization [facility] Medical [facility] 2 Address [address] [facility] [place] [address] Care Team Providers Care Criminal Judge Name Role Phone Candie Lin MD Primary Care Provider Allergies Active Allergy Reactions Criticality Noted Date Comments 1 Alpha-Gal Unknown Dairy Tolerance (Kpiycbyex-Xaxrl-6,3-G alactose) Diarrhea,Other (See comments) Low 05/13/2022 Alpha [...] wedge compression fracture of T5 vertebra 05/12/2022 Encounters Date Type Department Care Team Description 08/29/2024 Results Follow-Up [facility] Surgery [address] [facility] Office Building, [address] [place] [address] Ni Barrios MD 08/29/2024 Orders Only [facility] Surgery [address] [facility] Office Building, [address] [place] [address] Ni Barrios MD from Last 3 Months Surgical History Surgery Date Site/Laterality Comments ELBOW SURGERY Bilateral HIP SURGERY Bilateral Family History Medical History Relation Name Comments Heart disease Father Relation Name Status Comments Father Mother Alive Social History Tobacco Use Types Packs/Day Years [...] on file 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 Gender Identity Not on file Sexual Orientation Not on file Obstetrics History Last Filed Vital Signs Vital Sign Reading [...] 01/12/2024 2:16 PM CDT Plan of Treatment Health Maintenance Due Date Last Done Comments Depression Screening 1988 Hepatitis C Screening 1988 Varicella Vaccines (1 of 2 - 13+ 2-dose series) 2001 Hepatitis B Screening 2006 Regular Well Visit/Exam 18-64 2006 Influenza Vaccine (Season Ended) 2025 DTaP/Tdap/Td Vaccine (3 - Td or Tdap) 05/12/2032 05/12/2022, 12/25/2010 HPV Vaccines Aged Out No longer eligi ble based on patient's age to complete this topic Pneumococcal vaccine <65 Aged Out No longer eligible based on patient's age to complete this topic Procedures Procedure Name Priority Date/Time Associated Diagnosis Comments [facility] SEMEN AVNI PRESENCE&/MOTILITY SPRM HUHNER Routine 08/29/2024 10:39 AM CDT from Last 3 Months Results * CHG SEMEN AVNI PRESENCE&/MOTILITY SPRM HUHNER (08/29/2024 10:39 AM CDT) [facility] Final Result from Last 3 Months Insurance [facility] CHOICE PLUS [employer] ACCESS CHOICE WORKERS COMPENSATION GENERIC WORKERS COMPENSATION GENERIC Care Teams Criminal Judge Relationship Specialty Start Date End Date Candie Lin MD PCP - General Orthopedic Surgery 10/22/22
[2024-09-01 20:23] VITALS: BP 151/79; PULSE 103; RESP 20; TEMP 37.2; O2SAT 98
[2024-09-01 20:43] VITALS: BP 141/83; PULSE 93; RESP 16; O2SAT 99
[2024-09-01 20:59] LABS: Basophils Percent Auto 0.2 % (0.2-1.2); Eosinophils Absolute Auto 0.1 K/mm3 (0-0.3); Eosinophils Percent Auto 0.9 % (0-4.4); Hematocrit 44.2 % (42.0-52.0); Hemoglobin 14.6 g/dL (14.0-18.0); Immature Granulocyte Absolute 0.02 K/mm3 (0.00-0.031); Immature Granulocyte Percent A 0.2 % (0-0.5); Lymphocytes Absolute Auto 0.85 K/mm3 (0.9-3.2); Lymphocytes Percent Auto 9.5 % (18.3-44.2); Mean Corpuscular Hemoglobin 28.1 pg (26-34); Mean Platelet Volume 9.4 fl (7.4-10.4); Monocytes Absolute Auto 0.9 K/mm3 (0.1-0.6); Monocytes Percent Auto 10.5 % (2.6-8.5); Neutrophils Percent Auto 78.7 % (45.5-73.1); Platelet Count Result 186 k/mm3 (150-375); White Blood Count 8.9 K/mm3 (4.5-10.0)
[2024-09-01 21:00] LABS: Add Urine Microscopic? YES; Appearance Urine Turbid (Clear); Bacteria Urine Rare /hpf; Bilirubin Urine 1+ (Negative); Blood Urine 3+ (Negative); Color Urine Dark Yellow (Yellow); Glucose Urine UA Negative (Negative); Ketones Urine 1+ mg/dL (Negative); Leukocyte Esterase Ur 3+ LEU/UL (Negative); Need Manual Microscopic Reviewed; Nitrate Urine Negative (Negative); Non Pathogenic Casts 0-2; Protein Urine 3+ mg/dL (Negative); RBC Urine >100 /hpf (0-2); Specific Grav Ur 1.028 (1.001-1.035); Squamous Epithelial Cell Urine None Seen /hpf (Few); WBC Urine >100 /hpf (0-3)
[2024-09-01 21:10] LABS: Alanine Aminotransferase 27 U/L (6-50); Albumin Level 4.2 g/dL (3.5-5.1); Alkaline Phosphatase 56 U/L (38-126); Anion Gap 8 mmol/L (4-12); Aspartate Amino Transferase 31 U/L (17-59); Bilirubin,Total 0.7 mg/dL (0.2-1.3); Blood Urea Nitrogen 14 mg/dL (9-20); Calcium 8.5 mg/dL (8.4-10.2); Carbon Dioxide 29 mmol/L (22-30); Chloride 96 mmol/L (98-107); Estimated CRCL calculation 78 ml/min; Estimated Glomerular Filt Rate 59; Glucose 107 mg/dL (65-110); Lipase 75 U/L (23-300); Magnesium 1.8 mg/dL (1.6-2.3); Sodium 133 mmol/L (137-145)
--- OUTSIDE RECORDS SUMMARY | 2024-09-01 21:13 | XMS_ITS | Encounter Summary ---
Author Organization [facility] Address [address] [facility] [address] [place] [address] Phone Care Team Providers Care Sports Management Professor Name Role Phone Candie Lin MD Primary Care Provider Encounter Details Date Type Department Care Team (Late st Contact Info) Description 08/29/2024 Orders Only [facility] Surgery [address] [facility] Medical Office Building, [address] [place] [address] Ni Barrios MD [address] [facility] [place] [address] Social History Tobacco Use Types Packs/Day Years [...] on file 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
--- OUTSIDE RECORDS SUMMARY | 2024-09-01 21:13 | XMS_ITS | Encounter Summary ---
Author Organization [facility] Address [address] [place] [address] Phone Care Team Providers Care Dehydrator Name Role Phone Candie Lin MD Primary Care Provider Reason for Referral * Procedure (Routine) - Closed Specialty Diagnoses / Procedures Referred By Contac t Referred To Contact Diagnoses Tick bite, unspecified site, initial encounter Procedures Pulmonary Function Test -[facility] Adult PFT Lab- [facility]; Standard; Spirometry, Spirometry w/bronchodilator, DLCO and Lung Volumes Hi Fajardo MD [address] [place] [address] Phone: tel: fax: Referral ID Status Reason Start Date Expiration Date Visits Re quested Visits Authorized [id number] Closed 11/21/2022 12/21/2023 1 1 Reason for Visit * Procedure (Routine) - Closed Specialty Diagnoses / Procedures Referred By Contac t Referred To Contact Diagnoses Tick bite, unspecified site, initial encounter Procedures Pulmonary Function Test -[facility] Adult [facility]FT Lab- [facility]; Standard; Spirometry, Spirometry w/bronchodilator, DLCO and Lung Volumes Hi Fajardo MD [address] [place] [address] Phone: tel: fax: Referral ID Status Reason Start Date Expiration Date Visits Re quested Visits Authorized [id number] Closed 11/21/2022 12/21/2023 1 1 Encounter Details Date Type Department Care Team (Latest Contact Info) Description 12/09/2022 7:54 AM CDT Hospital Encounter [facility] PFT Lab [address] [facility] Medical Office Building [address] [place] [address] Tick bite, unspecified site, initial encounter Social [...] on file 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 Gender Identity Not on file Sexual Orientation [...] 8:44 AM CDT) FVC PRE 6.37 L [facility] FVC %PRE PRED 108 % [facility] FEV1 PRE 5.19 L [facility] FEV1 %PRE PRED 108 % [facility] FEV1/FVC PRE 81.4 % [facility] FRC PL PRE 4.05 L [facility] FRC PL %PRE PRED 108 % [facility] RV PRE 1.90 L [facility] RV %PRE PRED 102 % [facility] TLC PRE 8.17 L [facility] TLC %PRE PRED 109 % [facility] DLCO PRE 40.8 ml/min/mmH g [facility] DLCO %PRE PRED 117 % [facility] Anatomical Region Laterality Modality PFT 12/09/2022 8:04 [...] and %HbO2 is age dependent. However, the [facility] Pulmonary Function Laboratory defines hypoxemia as a PO2 <55 or a %HbO2 <89. Narrative 12/10/2022 10:15 AM CDT PFT performed at:->[facility] Adult PFT Lab- [facility] Procedure:->Standard Standard:->Spirometry, Spirometry w/bronchodilator, DLCO and Lung Volumes Pulmonary Function Test Interpretation SPIROMETRY: Spirometry is within normal limits. FLOW VOLUME LOOPS: The flow volume loop is normal LUNG VOLUMES: TLC measured by plethysmography is normal. DIFFUSING CAPACITY: The diffusing capacity is normal. [facility] Kris Fajardo MD PFT ORDERABLES Final Result documented in this encounter Visit Diagnoses Diagnosis Tick bite, unspecified site, initial encounter documented in this encounter Care Teams Dehydrator Relationship Specialty Start Date End Date Candie Lin MD PCP - General Orthopedic Surgery 10/22/22 documented as of this encounter
--- OUTSIDE RECORDS SUMMARY | 2024-09-01 21:13 | XMS_ITS | Referral Summary ---
Author Organization [facility] Medical [facility] 2 Address [address] [facility] [place] [address] Care Team Providers Care City Distribution Clerk Name Role Phone Candie Lin MD Primary Care Provider Encounters Date Type Department Care Team Description 08/29/2024 Results Follow-Up [facility] Surgery [address] [facility] Medical Office Building, [address] [place] [address] Ni Barrios MD 08/29/2024 Orders Only [facility] Surgery [address] [facility], [address] [place] [address] Ni Barrios MD from Last 3 Months Allergies Active Allergy Reactions Criticality Noted Date Comments 1 Alpha-Gal Unknown Dairy Tolerance (Uxutxdfei-Ypqvb-1,3-G alactose) Diarrhea,Other (See comments) Low 05/13/2022 Alpha [...] on file 

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
--- OUTSIDE RECORDS SUMMARY | 2024-09-01 21:13 | XMS_ITS | Encounter Summary ---
Author Organization [facility] Address [address] [facility] [address] [place] [address] Phone Care Team Providers Care Managed Care Analyst Name Role Phone Candie Lin MD Primary Care Provider Encounter Details Date Type Department Care Team (Late st Contact Info) Description 08/29/2024 Results Follow-Up [facility] Surgery [address] [facility] [address], [address] [place] [id number] Ni Barrios MD [address] [facility] [place] [address] Social History Tobacco Use Types Packs/Day Years [...] on file 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
--- OUTSIDE RECORDS SUMMARY | 2024-09-01 21:13 | XMS_ITS | Clinical Summary ---
Author Organization [facility] Address [address] [place] [address] Phone Care Team Providers Care Manager Interventional Name Role Phone Willie Guzman MD Primary Care Provider [phone] Encounters Date Type Department Care Team Description [...] age to complete this topic Care Teams Manager Interventional Relationship Specialty Start Date End Date Willie Guzman MD PCP - General Family Practice 07/12/14
--- OUTSIDE RECORDS SUMMARY | 2024-09-01 21:13 | XMS_ITS | Encounter Summary ---
Author Organization [facility] Address [address] 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
--- OUTSIDE RECORDS SUMMARY | 2024-09-01 21:13 | XMS_ITS | Clinical Summary ---
Author Organization [facility] Address [address] [facility] [place] [address] Care Team Providers Care Tumble Tailstock Turret Lathe Operator Name Role Phone Candie Lin MD Primary Care Provider Allergies Active Allergy Reactions Criticality Noted Date Comments 1 Alpha-Gal Unknown Dairy Tolerance (Dntfwiobi-Tspgf-9,3-G alactose) Diarrhea,Other (See comments) Low 05/13/2022 Alpha [...] Department Care Team Description 08/29/2024 Results Follow-Up [facility] [address] [facility] [address] [place] [address] Ni Barrios MD 08/29/2024 Orders Only [facility] [address] [facility] [address] [place] [address] Ni Barrios MD from Last 3 Months [...] on file 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 Gender Identity Not on file Sexual Orientation [...] Procedure Name Priority Date/Time Associated Diagnosis Comments [facility] SEMEN AVNI PRESENCE&/MOTILITY SPRM HUHNER Routine 08/29/2024 10:39 AM CDT from Last 3 Months Results * [facility]G SEMEN AVNI PRESENCE&/MOTILITY SPRM HUHNER (08/29/2024 10:39 AM CDT) [facility] Final Result from Last 3 Months Insurance [facility] [place] [address] [employer] ACCESS CHOICE WORKERS COMPENSATION GENERIC WORKERS COMPENSATION GENERIC Care Teams Tumble Tailstock Turret Lathe Operator Relationship Specialty Start Date End Date Candie Lin MD PCP - General Orthopedic Surgery 10/22/22
--- OUTSIDE RECORDS SUMMARY | 2024-09-01 21:13 | XMS_ITS | Clinical Summary ---
Author Organization [facility] Address [address] [place] [address] Care Team Providers Care Meat Clerk Name Role Phone Unavailable Primary Care Provider Unavailabl e Source Comments [facility],non-owned Affiliates and Associated Physician Practices is amultiple site organization consisting of ambulatory clinics and hospital sitesin [place], [place], [place] and [place]. This disclosure is being madepursuant to the Care Everywhere program and may not contain all information available regarding this patient. 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 Alwaysverify current medications with the patient. 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 Gender Identity Not on file Sexual Orientation Not on file Last Filed Vital Signs Vital Sign Reading Time Taken Comments Blood Pressure 139/70 05/13/2022 1:51 PM FLAT SURFACER Pulse 63 05/13/2022 1:51 PM FLAT SURFACER Temperature 36.4 C (97.5 F) 05/13/2022 1:51 PM FLAT SURFACER Respiratory Rate 18 05/13/2022 1:51 PM FLAT SURFACER Oxygen Saturation 98% 05/13/2022 1:51 PM FLAT SURFACER Inhaled Oxygen Concentration - - Weight 98.9 [...] age to complete this topic Insurance Attn: [place] [address] PAYOR GENERIC Advance Directives * Full Code (Latest Code Status on File) Date Activated Date Inactivated Comments 05/12/2022 8:44 PM 05/13/2022 8:01 PM
--- OUTSIDE RECORDS SUMMARY | 2024-09-01 21:13 | XMS_ITS | Continuity of Care Document ---
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 [place] [facility], [place], [place], [id number], [place] tel:[phone] [place] No Information 4 [place], [place], [place]. [facility], [place], [place], [address], [place] tel:[phone] [place] No Information 4 Ludy Castanoian. [id number] [place] [address], [facility], [place]. tel:[phone] Referring Provider: Garth Mcgarry [address], [place], [address]. tel:[phone] [place], [place] [address] [address], [place], [place], [address], [place] tel:[phone] [place] No Information 4 [place] , [place], [place]. Referring Provider: Garth Mcgarry [address], [place], [address]. tel:[phone] [place], [place] [address] [address], [place], [place], [address], [place] tel:[phone] [place] No Information 4 [place] , [place], [place]. Referring Provider: Garth Mcgarry [address], [place], [address]. tel:[phone] [place], [place] [address] [address], [place], [place], [address], [place] tel:[phone] [place] No Information 4 [place] , [place], [place]. Referring Provider: Garth Mcgar[address], [place], [address]. tel:[phone] [place], [place] [address] [address], [place], [place], [address], [place] tel:[phone] [place] No Information 4 [place] , [place], [place]. Referring Provider: Garth Mcgar[address], [place], [address]. tel:[phone] [facility], [place], [place], [address], [place] tel:[phone] [place] No Information 4 Clarisaisis Miller. [address] [place], [place], [facility], [place]. tel:[phone] Referring Provider: Patel Casillas, [address], [place], [address]. tel:[phone] [place] [address], [address], [place], [place], [address], [place] tel:[phone] [place] No Information 4 Garrels Mireille. . Referring Provider: Patel Casillas, [address], [place], [address]. tel:[phone] [place], [place] [address] [address], [place], [place], [address], [place] tel:[phone] [place] No Information 4 Ohnesorge Merrill. . Referring Provider: Garth Mcgarry [address], [place], [address]. tel:[phone] [place], [place] [address] [address], [place], [place], [address], [place] tel:[phone] [place] No Information 4 [place] , [place], [place]. Referring Provider: Garth Mcgarry [address], [place], [address]. tel:[phone] [place], [place] [address] [address], [place], [place], [address], [place] tel:[phone] [place] No Information 4 Ohnesorge Merrill. . Referring Provider: Garth Mcgarry [address], [place], [address]. tel:[phone] [facility], [place], [place], [address], [place] tel:[phone] [place] No Information 4 [place] , [place], [place]. Referring Provider: Garth Mcgar[address], [place], [address]. tel:[phone] [facility], [address], [place], [place], [address], [place] tel:[phone] [place] No Information 4 Ohnesorge Merrill. . Referring Provider: Patel Casillas, [address], [place], [address]. tel:[phone] [facility], [address], [place], [place], [address], [place] tel:[phone] [place] No Information 4 [place] , [place], [place]. Referring Provider: Patel Casillas, [address], [place], [address]. tel:[phone] [place] [address], [address], [place], [place], [address], [place] tel:[phone] [place] No Information 4 Toro Dan. . Referring Provider: Garth Mcgar[address], [place], [address]. tel:[phone] [facility], [address], [place], [place], [address], [place] tel:[phone] [place] No Information 4 [place] , [place], [place]. Referring Provider: Garth Mcgarry [address], [place], [address]. tel:[phone] [facility], [address], [place], [place], [address], [place] tel:[phone] [place] No Information 0 4 Ohnesorge Merrill. . Referring Provider: Garth Mcgar[address], [place], [address]. tel:[phone] [facility], [address], [place], [place], [address], [place] tel:[phone] [place] No Information 0 4 Brittaney Cooley. . Referring Provider: Patel Casillas, [address], [place], [address]. tel:[phone] [facility], [address], [place], [place], [address], [place] tel:[phone] [place] No Information 4 Brittaney Cooley. . Referring Provider: Patel Casillas, [address], [place], [address]. tel:[phone] [facility], [address], [place], [place], [address], [place] tel:[phone] [place] No Information 4 Jose Momin. . Referring Provider: Patel Casillas, [address], [place], [address]. tel:[phone] [place] [address], [address], [place], [place], [address], [place] tel:[phone] [place] No Information 4 [place] , [place], [place]. Referring Provider: Patel Casillas, [address], [place], [address]. tel:[phone] [facility], [address], [place], [place], [address], [place] tel:[phone] [place] No Information 4 Brittaney Cooley. . Referring Provider: Patel Casillas, [address], [place], [address]. tel:[phone] [facility], [address], [place], [place], [address], [place] tel:[phone] [place] No Information 4 Brittaney Cooley. . Referring Provider: Patel Casillas, [address], [place], [address]. tel:[phone] [facility], [address], [place], [place], [address], [place] tel:[phone] [place] No Information - 4 Klahn Yasir. . Referring Provider: Patel Casillas, [address], [place], [address]. tel:[phone] [place], [place] [address] [address], [place], [place], [address], [place] tel:[phone] [place] No Information 0 4 Klahn Yasir. . Referring Provider: Patel Casillas, [address], [place], [address]. tel:[phone] [place] [address], [address], [place], [place], [address], [place] tel:[phone] [place] No Information 0 4 Klahn Yasir. . Referring Provider: Garth Mcgar[address], [place], [address]. tel:[phone] [place] [address] [address], [place], [place], [address], [place] tel:[phone] [place] No Information September-3 0 4 Klahn Yasir. . Referring Provider: Garth Mcgar[address], [place], [address]. tel:[phone] [place], [place] [address] [address], [place], [place], [address], [place] tel:[phone] [place] No Information September- 4 Kln Yasir. . Referring Provider: Garth Mcgar[address], [place], [address]. tel:[phone] [place] [address] [address], [place], [place], [address], [place] tel:[phone] [place] No Information September-2 3 4 Keikon Yasir. . Referring Provider: Patel Casillas [address], [place], [address]. tel:[phone] [facility], [place], [place], [address], [place] tel:[phone] [place] No Information 4 Brittaney Cooley. . Referring Provider: Patel Casillas, [address] [facility] [address], [place], [address]. tel:[phone] [place], [place] [address] [address], [place], [place], [address], [place] tel:[phone] [place] No Information 4 [facility] [place]. Referring Provider: Patel Casillas, [address], [place], [address]. tel:[phone] [place] [address] [address], [place], [place], [address], tel:[phone] [place] No Information 3 Ludy Miller. [address] [place] [address], [facility], . tel:[phone] Referring Provider: Patel Hadley [address] [facility] [address], [place], [address]. tel:[phone] [place], [place] [address] [address], [place], [place], [address], [place] tel:[phone] [place] No Information 3 [facility]. Referring Provider: Patel Hadley [address] [facility] [address], [place], [address]. tel:[phone] [place], [place] [address] [address], [place], [place], [address], [place] tel:[phone] [place] No Information 3 Brittaney Cooley. . Referring Provider: Patel Hadley [address] [facility] [address], [place], [address]. tel:[phone] [place], [place] [address] [address], [place], [place], [address], [place] tel:[phone] [place] No Information 3 Jose Momin. . Referring Provider: Patel Hadley [address] [facility] [address], [place], [address]. tel:[phone] [place] [address], [address], [place], [place], [address], [place] tel:[phone] [place] No Information 3 Brittaney Cooley. . Referring Provider: Maykel Limon, [address] [facility] [address], [place], [address]. tel:[phone] [address] [place] [address], [address], [place], [place], [address], [place] tel:[phone] [place] No Information 3 Jose Momin. . Referring Provider: Patel Hadley, [address] [facility] [address], [place], [address]. tel:[phone] [address] [place] [address], [address] [facility] [facility], [place], [place], [address], [place] tel:[phone] [place] No Information 3 Brittaney Cooley. . Referring Provider: Patel Hadley [address] [facility] [address], [place], [address]. tel:[phone] [address] [place] [address] [address], [place], [place], [address], [place] tel:[phone] [place] No Information 3 Brittaney Cooley. . Referring Provider: Maykel Limon, [address] [facility] [address], [place], [address]. tel:[phone] [address] [place] [address], [address], [place], [place], [address], [place] tel:[phone] [place] No Information 3 [place], [place]. Referring Provider: Patel Hadley [address] [facility] [address], [place], [address]. tel:[phone] [place] [address], [address], [place], [place], [address], [place] tel:[phone] [place] No Information 3 Ohnesorge Merrill. . Referring Provider: Maykel Limon, [address], [place], [address]. tel:[phone] [facility], [address] [place] [address] [address], [place], [place], [address], [place] tel:[phone] [place] No Information 3 [place]. Referring Provider: Patel Hadley, [address], [place], [address]. tel:[phone] [place] [address], [address] [place], [place] [address], [place], [place], [address], [place] tel:[phone] [place] No Information 3 Ohnesorge Merrill. . Referring Provider: Patel Hadley [address], [place], [address]. tel:[phone] [place] [address], [address] [place] [address]e [address], [place], [place], [address], [place] tel:[phone] [place] No Information 0 3 [place]. Referring Provider: Maykel Limon, [address] [facility] [address], [place], [address]. tel:[phone] [place] [address] [address], [place], [place], [address], [place] tel:[phone] [place] No Information 0 3 Bob Maldonado. . Referring Provider: Patel Hadley [address], [place], [address]. tel:[phone] [place] [address], [address] [place] [address], [place], [place], [address], [place] tel:[phone] [place] No Information 0 3 Brittaney Cooley. . Referring Provider: Maykel Limon, [address], [place], [address]. tel:[phone] [place] [address], [address] [place] [address], [place], [place], [address], [place] tel:[phone] [place] No Information 3 Brittaney Cooley. . Referring Provider: Patel Hadley [address] [facility] [address], [place], [address]. tel:[phone] [place] [address], [address], [place], [place], [address], [place] tel:[phone] [place] No Information 3 Brittaney Cooley. . Referring Provider: Maykel Limon, [address], [place], [address]. tel:[phone] [place] [address], [address] [facility], [place], [place], [address], [place] tel:[phone] [place] No Information 3 [place]. Referring Provider: Patel Hadley [address] [facility] [address], [place], [address]. tel:[phone] [place] [address], [address] [facility], [place], [place], [address], [place] tel:[phone] [place] No Information 3 Brittaney Cooley. . Referring Provider: Maykel Limon, [address], [place], [address]. tel:[phone] [place] [address], [address], [place], [place], [address], [place] tel:[phone] [place] No Information 3 [facility]. Referring Provider: Patel Hadley [address] [facility] [address], [place], [address]. tel:[phone] [place] [address], [address], [place], [place], [address], [place] tel:[phone] [place] No Information 3 Jose Momin. . Referring Provider: Maykel Limon [address] [facility] [address], [place], [address]. tel:[phone] [facility], [address], [place], [place], [address], [place] tel:[phone] [place] No Information 3 Jose Momin. . Referring Provider: Maykel Limon, [address], [place], [address]. tel:[phone] [facility], [address], [place], [place], [address], [place] tel:[phone] [place] No Information 3 Brittaney Cooley. . Referring Provider: Maykel Limon, [address], [place], [address]. tel:[phone] [place] [address], [address] [place] [address], [place], [place], [address], [place] tel:[phone] [place] No Information 3 Brittaney Cooley. . Referring Provider: Maykel Limon, [address], [place], [address]. tel:[phone] [facility], [address] [facility] [address], [place], [place], [address], [place] tel:[phone] [place] No Information 3 Brittaney Cooley. . Referring Provider: Maykel Limon, [address], [place], [address]. tel:[phone] [facility], [address], [place], [place], [address], [place] tel:[phone] [place] No Information 3 Brittaney Cooley. . Referring Provider: Maykel Limon, [address], [place], [address]. tel:[phone] [facility], [address] [facility] [address] [facility] [address], [place], [place], [address], [place] tel:[phone] [place] No Information - 3 Klahn Yasir. . Referring Provider: Maykel Limon, [address] [facility] [address], [place], [address]. tel:[phone] [facility] [address], [place], [place], [address], [place] tel:[phone] [place] No Information 0- 3 Klahn Yasir. . Referring Provider: Patel Hadley, [address], [place], [address]. tel:[phone] [place] [address] [address], [place], [place], [address], [place] tel:[phone] [place] No Information Nov-0 6 3 Klahn Yasir. . Referring Provider: Patel Hadley [address], [place], [address]. tel:[phone] [place] [address] [address], [place], [place], [address], [place] tel:[phone] [place] No Information 0 3 3 Klahn Yasir. . Referring Provider: Patel Hadley [address], [place], [address]. tel:[phone] [place] [address] [address], [place], [place], [address], [place] tel:[phone] [place] No Information 3 0 3 Klahn Yasir. . Referring Provider: Patel Hadley [address], [place], [address]. tel:[phone] [facility], [place], [place], [address], [place] tel:[phone] [place] No Information 2 3 Klahn Yasir. . Referring Provider: Patel Hadley [address], [place], [address]. tel:[phone] [place], [place] [address], [place], [place], [address], [place] tel:[phone] [place] No Information Jeovany-2 3 [facility] Referring Provider: Patel Hadley, [address], [place], [address]. tel:[phone] [place] [address], [address], [place], [place], [address], [place] tel:[phone] [place] No Information Jeovany-2 3 Jose Momin. . Referring Provider: Patel Hadley [address], [place], [address]. tel:[phone] [place] [address], [address], [place], [place], [address], [place] tel:[phone] [place] No Information Jeovany-2 3 Brittaney Cooley. . Referring Provider: Patel Hadley [address], [place], [address]. tel:[phone] [place] [address], [address], [place], [place], [address], [place] tel:[phone] [place] No Information Oct- 3 Brittaney Cooley. . Referring Provider: Patel Hadley [address], [place], [address]. tel:[phone] [place] [address] [address], [place], [place], [address], [place] tel:[phone] [place] No Information Oct-1 3 Brittaney Cooley. . Referring Provider: aPtel Hadley [address], [place], [address]. tel:[phone] [place], [place] [address] [address], [place], [place], [address], [place] tel:[phone] [place] No Information Oct-1 3 [place]. Referring Provider: Patel Hadley [address], [place], [address]. tel:[phone] [place] [address], [address], [place], [place], [address], [place] tel:[phone] [place] No Information Jeovany-1 2-202 3 Klahn Yasir. . Referring Provider: Patel Hadley, [address], [place], [address]. tel:[phone] [place] [address], [address], [place], [place], [address], [place] tel:[phone] [place] No Information Jeovany-0 9-202 3 Klahn Yasir. . Referring Provider: Patel Hadley [address], [place], [address]. tel:[phone] [place], [place] [address] [address], [place], [place], [address], [place] tel:[phone] [place] No Information Jeovany-0 8-202 3 Klahn Yasir. . Referring Provider: Garth Mcgar[address], [place], [address]. tel:[phone] [place] [address] [address], [place], [place], [address], [place] tel:[phone] [place] No Information Jeovany-0 6-202 3 Klahn Yasir. . Referring Provider: Patel Hadley [address], [place], [address]. tel:[phone] [place], [place] [address] [address], [place], [place], [address], [place] tel:[phone] [place] No Information Jeovany-0 5-202 3 Klahn Yasir. . Referring Provider: Patel Hadley [address], [place], [address]. tel:[phone] [place], [place] [address], [place], [place], [address], [place] tel:[phone] [place] No Information September-2 5-202 3 Klahn Yasir. . Referring Provider: Garth Mc[address], [place], [address]. tel:[phone] [place] [address], [address], [place], [place], [address], [place] tel:[phone] [place] No Information 3 Jesus [place]. , [place], [place]. Referring Provider: Patel Hadley [address], [place], [address]. tel:[phone] [place] [address] [address], [place], [place], [address], [place] tel:[phone] [place] No Information 3 Klchecon Yasir. . Referring Provider: Patel Hadley [address] [facility] [address], [place], [address]. tel:[phone] [place] [address], [address], [place], [place], [address], [place] tel:[phone] [place] No Information 3 Klchecon Yasir. . Referring Provider: Patel Hadley [address] [facility] [address], [place], [address]. tel:[phone] [place], [place] [address] [address], [place], [place], [address], [place] tel:[phone] [place] No Information 3 Brittaney Cooley. . Referring Provider: G[address], [place], [address]. tel:[phone] [place], [place] [address] [address], [place], [place], [address], [place] tel:[phone] [place] No Information 3 Jesus [place] , [place], [place]. Referring Provider: Patel Hadley [address] [address], [place], [address]. tel:[phone] [place] [address] [address], [place], [place], [address], [place] tel:[phone] [place] No Information 3 Brittaney Cooley. . Referring Provider: [address], [place], [address]. tel:[phone] [place] [address] [address], [place], [place], [address], [place] tel:[phone] [place] No Information September-1 5- 3 Keikon Yasir. . Referring Provider: Patel Hadley, [address] [facility] [address], [place], [address]. tel:[phone] [place] [address] [address], [place], [place], [address], [place] tel:[phone] [place] No Information September- 2- 3 Keikon Yasir. . Referring Provider: Patel Hadley, [address] [facility] [address], [place], [address]. tel:[phone] [place] [address] [address], [place], [place], [address], [place] tel:[phone] [place] No Information September-05 04- 3 Brittaney Cooley. . Referring Provider: Patel Casillas, [address], [place], [address]. tel:[phone] [place] [address] [address], [place], [place], [address], [place] tel:[phone] [place] No Information September-1 0-202 3 [place], [place]. Referring Provider: Patel Casillas, [address], [place], [address]. tel:[phone] [place] [address] [address], [place], [place], [address], [place] tel:[phone] [place] No Information May-0 9-202 3 Brittaney Cooley. . Referring Provider: Patel Casillas, [address], [place], [address]. tel:[phone] [facility] [address], [place], [place], [address], [place] tel:[phone] [place] No Information May-0 8-202 3 Klahn Yasir. . Referring Provider: Patel Casillas, [address], [place], [address]. tel:[phone] [place] [address], [address], [place], [place], [id number], [place] tel:[phone] [place] No Information May-0 5-202 3 Klahn Yasir. . Referring Provider: Patel Hadley, [address], [place], [address]. tel:[phone] [place] [address], [address], [place], [place], [id number], [place] tel:[phone] [place] No Information May-0 4-202 3 Klahn Yasir. . Referring Provider: Patel Casillas, [address], [place], [address]. tel:[phone] [place] [address], [address], [place], [place], [id number], [place] tel:[phone] [place] No Information May-0 3-202 3 Klahn Yasir. . Referring Provider: Patel Hadley [address], [place], [address]. tel:[phone] [place] [address], [address], [place], [place], [id number], [place] tel:[phone] [place] No Information May-0 2-202 3 Jesus Vale [place], [place]. Referring Provider: Patel Casillas, [address], [place], [address]. tel:[phone] [place] [address], [address], [place], [place], [id number], [place] tel:[phone] [place] No Information May-0 1-202 3 Klahn Yasir. . Referring Provider: Patel Hadley, [address], [place], [address]. tel:[phone] [place] [address], [address], [place], [place], [id number], [place] tel:[phone] [place] No Information Apr-2 3 Brittaney Cooley. . Referring Provider: Patel Hadley [address], [place], [address]. tel:[phone] [place] [address], [address], [place], [place], [id number], [place] tel:[phone] [place] No Information Aug-2 3 Brittaney Cooley. . Referring Provider: Patel Casillas, [address], [place], [address]. tel:[phone] [place] [address], [address], [place], [place], [id number], [place] tel:[phone] [place] No Information Aug-2 3 Jesus Vale [place]. Referring Provider: Patel Hadley [address], [place], [address]. tel:[phone] [place] [address], [address], [place], [place], [id number], [place] tel:[phone] [place] No Information Aug-2 3 Brittaney Cooley. . Referring Provider: Patel Casillas, [address], [place], [address]. tel:[phone] [place] [address], [address], [place], [place], [id number], [place] tel:[phone] [place] No Information Aug-2 3 Brittaney Cooley. . Referring Provider: Patel Hadley [address], [place], [address]. tel:[phone] [place] [address] [address], [place], [place], [id number], [place] tel:[phone] [place] No Information Aug-2 3 Brittaney Cooley. . Referring Provider: Patel Hadley [address], [place], [address]. tel:[phone] [place] [address] [address], [place], [place], [address], [place] tel:[phone] [place] No Information Aug-2 0- 3 Keikon Yasir. . Referring Provider: Garth Mcgarry [address], [place], [address]. tel:[phone] [place] [address], [address], [place], [place], [id number], [place] tel:[phone] [place] No Information Aug- 3 Jesus [place] , [place], [place]. Referring Provider: Patel Hadley, [address], [place], [address]. tel:[phone] [place] [address], [address], [place], [place], [address], [place] tel:[phone] [place] No Information Aug- 3 Brittaney Cooley. . Referring Provider: Garth Mcgarry [address], [place], [address]. tel:[phone] [place] [address] [address], [place], [place], [address], [place] tel:[phone] [place] No Information 3 Brittaney Cooley. . Referring Provider: Patel Hadley [address], [place], [address]. tel:[phone] [place] [address], [address], [place], [place], [address], [place] tel:[phone] [place] No Information Aug-1 3 Keikon Yasir. . Referring Provider: Patel Hadley [address], [place], [address]. tel:[phone] [place] [address] [address], [place], [place], [address], [place] tel:[phone] [place] No Information Apr-1 - 3 Brittaney Cooley. . Referring Provider: Garth Mcgarry [address], [place], [address]. tel:[phone] [place] [address], [address], [place], [place], [address], [place] tel:[phone] [place] No Information Apr-1 2-202 3 Jesus [place] , [place], [place]. Referring Provider: Patel Hadley, [address], [place], [address]. tel:[phone] [place] [address], [address], [place], [place], [address], [place] tel:[phone] [place] No Information Apr-1 1-202 3 Klchecon Yasir. . Referring Provider: Patel Casillas, [address], [place], [address]. tel:[phone] [place] [address], [address], [place], [place], [address], [place] tel:[phone] [place] No Information Apr-1 0-202 3 Keikon Yasir. . Referring Provider: Patel Hadley, [address], [place], [address]. tel:[phone] [place] [address], [address], [place], [place], [address], [place] tel:[phone] [place] No Information Apr-0 7- 3 Keikon Yasir. . Referring Provider: Patel Hadley, [address], [place], [address]. tel:[phone] [place] [address], [place], [place], [address], [place] tel:[phone] [place] No Information Apr-0 6-202 3 Brittaney Cooley. . Referring Provider: Patel Casillas, [address], [place], [address]. tel:[phone] [facility], [place], [place], [address], [place] tel:[phone] [place] No Information Apr-0 5-202 3 Jesus [place] , [place], [place]. Referring Provider: Patel Hadley [address], [place], [address]. tel:[phone] [place] [address], [address], [place], [place], [address], [place] tel:[phone] [place] No Information Apr-0 4 3 Klahn Yasir. . Referring Provider: Patel Casillas, [address], [place], [address]. tel:[phone] [facility] [address], [place], [place], [address], [place] tel:[phone] [place] No Information Apr-0 3-202 3 Klahn Yasir. . Referring Provider: Patel Hadley [address], [place], [address]. tel:[phone] [place] [address], [address], [place], [place], [address], [place] tel:[phone] [place] No Information Mar-3 1-202 3 Klahn Yasir. . Referring Provider: Patel Hadley [address], [place], [address]. tel:[phone] [place] [address], [address], [place], [place], [address], [place] tel:[phone] [place] No Information Mar-3 0-202 3 Klahn Yasir. . Referring Provider: Patel Hadley [address], [place], [address]. tel:[phone] [place] [address] [address], [place], [place], [address], [place] tel:[phone] [place] No Information Mar-2 9 3 Klahn Yasir. . Referring Provider: Patel Hadley [address], [place], [address]. tel:[phone] [place] [address], [place], [place], [address], [place] tel:[phone] [place] No Information Mar-2 3-202 3 Klahn Yasir. . Referring Provider: Patel Hadley [address], [place], [address]. tel:[phone] [facility], [place], [place], [address], [place] tel:[phone] [place] No Information Mar-2 2-202 3 Keikon Yasir. . Referring Provider: Patel Hadley, [address] [facility] [address], [place], [address]. tel:[phone] [facility] [address] [place], [place] [address], [place], [place], [address], [place] tel:[phone] [place] No Information Mar-2 0-202 3 Klahn Yasir. . Referring Provider: Patel Hadley, [address] [facility] [address], [place], [address]. tel:[phone] [facility], [address] [place], [place] [address], [place], [place], [address], tel:[phone] [place] No Information Mar-1 5-202 3 Klahn Yasir. . Referring Provider: Garth Mcgarry [address], [place], [address]. tel:[phone] [facility] [address] [place], [place] [address], [place], [place], [address], [place] tel:[phone] [place] No Information Mar-1 3-202 3 Brittaney Cooley. . Referring Provider: Garth Mcgarry [facility] [address], [place], [address]. tel:[phone] [facility] [address] [place], [place] [address], [place], [place], [address], [place] tel:[phone] [place] No Information Mar-0 8-202 3 Brittaney Cooley. . Referring Provider: Garth Mcgarry [address], [place], [address]. tel:[phone] Family History Family Member Type Diagnosis Age At Onset No Information Payers Payer name Insurance type Covered green party ID Jevon benito(s) Ruddy [facility] WC 00 Social History Type Description [...]
--- NOTE | 2024-09-01 22:17 | ED_ITS ---
HPI - Abdominal Pain General Chief Complaint: Urogenital-Male Stated Complaint: Difficulty urinating with discharge Time Seen by Provider: 09/01/24 21:05 Source: patient Mode of arrival: ambulatory Limitations: no limitations History of Present Illness HPI narrative: This is a 34-year-old male that presents to the emergency department for dysuria. Ongoing since yesterday. Reports associated hematuria. Reports fevers. Denies flank pain, vomiting, diarrhea Related Data Home Medications ?Medication ?Instructions ?Recorded ?Confirmed ?Last Taken ?Type anastrozole 1 mg tablet 1 mg PO .COMPLEX 07/09/20 08/20/20 Unknown History testosterone cypionate 100 mg/mL 100 mg IM .COMPLEX 07/09/20 08/20/20 Unknown History intramuscular oil chorionic gonadotropin, human 500 unit IM 2XW 08/20/20 08/20/20 Unknown History 10,000 unit IM powder for solution Allergies Allergy/AdvReac Type Severity Reaction Status Date / Time No Known Allergies Allergy Verified 09/01/24 20:20 Review of Systems 2 Review of Systems: CONSTITUTIONAL: Reports fever GASTROINTESTINAL: Report abdominal pain. Denies nausea, vomiting, or diarrhea. GENITOURINARY: Reports dysuria and hematuria. All systems reviewed & are unremarkable except as noted in HPI and below PMFSH Past Medical History Medical History High serum creatinine Hyperlipidemia Polycythemia Prehypertension Surgical History Surgical History History of appendectomy Family History Family History Grandparent Diabetes mellitus Acute myocardial infarction Cerebrovascular accident Family history of cardiovascular disease Father Hypertension Family history of cardiovascular disease Social History Social History Smoking status: Never smoker Alcohol intake: current Exam 2 Narrative: GENERAL: Well-appearing, well-nourished, and in no acute distress. HEAD: Normocephalic, atraumatic. EYES: EOMI. CHEST: Clear to auscultation. No respiratory distress. No wheezes rales or rhonchi HEART: Regular rate and rhythm. No murmur heard. Normal peripheral pulses. ABDOMEN: Soft, nontender, nondistended, normal active bowel sounds. EXTREMITIES: Normal range of motion. No edema. SKIN: Warm, dry, no rash. NEURO: No focal deficits. Alert and oriented x3. PSYCH: Normal mood and affect Course Vital Signs Vital signs: Vital Signs Temperature 99.0 F 09/01/24 20:23 Pulse Rate 103 H 09/01/24 20:23 Respiratory Rate 20 09/01/24 20:23 Blood Pressure 151/79 H 09/01/24 20:23 Pulse Oximetry 98 09/01/24 20:23 Oxygen Delivery Room Air 09/01/24 20:23 Temperature 99.0 F 09/01/24 20:23 Pulse Rate 87 09/02/24 00:30 Respiratory Rate 14 09/02/24 00:30 Blood Pressure 136/84 09/02/24 00:30 Pulse Oximetry 99 09/02/24 00:30 Oxygen Delivery Room Air 09/01/24 20:23 MDM - Abdominal Pain MDM Narrative Medical decision making narrative: Patient presents to the emergency department for urinary symptoms. He is afebrile and nontoxic appearing. Mildly tachycardic upon arrival, this normalized with IV fluids. CBC without leukocytosis. Metabolic panel metabolic panel with kidney function appears to be around his baseline. Urine is consistent with infection. Chlamydia, gonorrhea Trichomonas were negative. CT abdomen and pelvis is without appendicitis, diverticulitis or intestinal obstruction. He does have some enlarged lymph nodes. Inflammation of his bladder. Radiologist notes a transient intussusception of the small bowel. Patient and family updated on his workup and agrees with plan of care. He has follow-up with his Urologist. He was given warnings to return to the ER Differential Diagnosis Differential diagnosis: Likely abdominal pain, calculus of kidney and other (UTI) Lab Data Attestation: I reviewed the patient's lab results. 09/01/24 20:51 09/01/24 20:51 Labs: Lab Results 09/01/24 09/01/24 Range/Units 20:41 20:51 WBC 8.9 (4.5-10.0) K/mm3 RBC 5.20 (4.6-6.20) M/mm3 Hgb 14.6 (14.0-18.0) g/dL Hct 44.2 (42.0-52.0) % MCV 85.0 (80-100) fl MCH 28.1 (26-34) pg MCHC 33.0 (32-36) g/dl RDW 13.0 (11.5-14.5) % Plt Count 186 (150-375) k/mm3 MPV 9.4 (7.4-10.4) fl Immature Gran % (Auto) 0.2 (0-0.5) % Neut % (Auto) 78.7 H (45.5-73.1) % Lymph % (Auto) 9.5 L (18.3-44.2) % [place]pherson % (Auto) 10.5 H (2.6-8.5) % Eos % (Auto) 0.9 (0-4.4) % Baso % (Auto) 0.2 (0.2-1.2) % Lymph # (Auto) 0.85 L (0.9-3.2) K/mm3 [place]pherson # (Auto) 0.9 H (0.1-0.6) K/mm3 Eos # (Auto) 0.1 (0-0.3) K/mm3 Baso # (Auto) 0.0 (0.0-0.1) K/mm3 Abs Immat Gran (auto) 0.02 (0.00-0.031) K/mm3 Absolute Neuts (auto) 7.0 H (1.3-6.7) K/mm3 Absolute Nucleated RBC 0.000 (0.0-0.012) K/mm3 Nucleated RBC % 0.0 (0.0-0.2) % Sodium 133 L (137-145) mmol/L Potassium 4.0 (3.4-5.0) mmol/L Chloride 96 L (98-107) mmol/L Carbon Dioxide 29 (22-30) mmol/L Anion Gap 8 (4-12) mmol/L BUN 14 (9-20) mg/dL Creatinine 1.36 H (0.7-1.3) mg/dL Estim Creat Clear Calc 78 ml/min Estimated GFR 59 (59 - ) Glucose 107 (65-110) mg/dL Calcium 8.5 (8.4-10.2) mg/dL Magnesium 1.8 (1.6-2.3) mg/dL Total Bilirubin 0.7 (0.2-1.3) mg/dL AST 31 (17-59) U/L ALT 27 (6-50) U/L Alkaline Phosphatase 56 (38-126) U/L Total Protein 7.0 (6.3-8.2) g/dL Albumin 4.2 (3.5-5.1) g/dL Lipase 75 (23-300) U/L Urine Color Dark yellow (Yellow) Urine Appearance Turbid H (Clear) Urine pH 6.0 (5.0-9.0) Ur Specific [place] 1.028 (1.001-1.035) Urine Protein 3+ H (Negative) mg/dL Urine Glucose (UA) Negative (Negative) mg/dL Urine Ketones 1+ H (Negative) mg/dL Ur Blood (Man) 3+ H (Negative) Urine Nitrate Negative (Negative) Urine Bilirubin 1+ H (Negative) Urine Urobilinogen 1.0 (<2.0) mg/dL Add Ur Microanalysis Reviewed Leukocyte Esterase Rfl 3+ H (Negative) SUSHMA/UL Urine RBC >100 H (0-2) /hpf Urine WBC >100 H (0-3) /hpf Ur Squamous Epith Cells None seen (Few) /hpf Urine Bacteria Rare /hpf Urine Casts 0-2 C. trachomatis (PCR) Not detected (NOT DETECTE) N. gonorrhoeae (PCR) Not detected (NOT DETECTE) T. vaginalis (PCR) Not detected (NOT DETECTE) Imaging Data Radiologist's impression: ITS Impressions Abdomen/Pelvis CT 09/01/24 22:36 IMPRESSION: 1. No evidence of appendicitis, diverticulitis or intestinal obstruction. 2. Mesenteric lymph nodes with the largest measures 1.6 cm. 3. Highly suggestive transient intussusception in the small bowel. Follow-up advised. Critical Care Time Critical Care Time Critical Care Time: No Discharge Plan Discharge Clinical Impression: Acute UTI Patient Disposition: Home Condition: Stable Instructions: Antibiotic Form, Urinary Tract Infection in Men (ED) Additional Instructions: Return to the ER if you experience fever, abdominal pain with nausea and vomiting, you are unable to keep down liquids or solids, or any other symptoms that are concerning to you Remain well hydrated. Take oral antibiotics as prescribed Follow up with Urology Patient Language: Kenyan Prescriptions: New cefdinir 300 mg capsule 300 mg PO Q12H 10 Days Qty: 20 0RF No Action testosterone cypionate 100 mg/mL oil 100 mg IM .COMPLEX Rx Instructions: 100 mg IM; as a single dose twice a week anastrozole 1 mg tablet 1 mg PO .COMPLEX Rx Instructions: 1 mg PO; three times a week chorionic gonadotropin, human 10,000 unit recon soln 500 unit IM 2XW Rx Instructions: 2 nd cycle Follow-up/Referrals: Adalid Jane MD [Physician] - UNKNOWN,DOCTOR [Primary Care Provider] -
[2024-09-01] MEDS: ACETAMINOPHEN 500 MG TABLET 1000 MG PO (22:38)
[2024-09-01] MEDS: SODIUM CHLORIDE 0.9% IV 1,000 ML 999 ML IV CONT (22:38)
[2024-09-02 00:30] VITALS: BP 136/84; PULSE 87; RESP 14; O2SAT 99
[2024-09-02 00:45] LABS: Trichomonas Vag PCR NOT DETECTED (NOT DETECTE)
[2024-09-02 01:08] LABS: Chlamydia trachomatis NOT DETECTED (NOT DETECTE); Neisseria gonorrhoeae PCR NOT DETECTED (NOT DETECTE)
== END 2024-09-02 00:31 | disposition home or self-care (01) ==
PROVIDERS: Emergency Medicine; Emergency Provider Physician Assistant
DX: N39.0 Urinary tract infection, site not specified (principal); E78.5 Hyperlipidemia, unspecified; R93.3 Abnormal findings on diagnostic imaging of other parts of digestive tract
CPT/HCPCS: 36415; 74177; 80053; 81001; 83690; 83735; 85025; 87077; 87086; 87186; 87491; 87591; 87661; 96361; 96365; 99284; A9270; J0696; J7030; Q9967

== ENCOUNTER 2024-09-14 13:19 | Outpatient (CLI) | payer OTHER, SELFPAY ==
--- NOTE | ~2024-09-14 | MR_ITS ---
MRI of the right shoulder Technique: Axial proton-density fat-sat images, coronal proton density fat-sat and T2 fat-sat images, and sagittal T1-weighted and T2 fat-sat images were acquired. Clinical History: Rotator cuff strain Findings: There is minimal AC joint degenerative change. Coracoclavicular, coracoacromial, and coraco humeral ligaments are intact. There is a 5 x 5 mm low-grade articular surface partial tear at the distal supraspinatus tendon inser tion. There is mild supraspinatus and infraspinatus tendinosis. Subscapularis tendon is intact. Tendo n of the long head of the biceps is intact. There is superior labral tear extending to the posterior superior portion. Inferior glenohumeral ligament is intact. No significant degenerative change or effusion of the gleno humeral joint. No fluid distention of the subacromial/subdeltoid bursa. No muscle atrophy or edema. Impression: Superior labral tear extending to the posterior superior portion. 5 x 5 mm low-grade articular surface partial tear of the distal supraspinatus tendon insertion. Reviewed, dictated and finalized at [facility]. Impression: Superior labral tear extending to the posterior superior portion. 5 x 5 mm low-grade articular surface partial tear of the distal supraspinatus t endon insertion.
== END 2024-09-14 13:20 | disposition home or self-care (01) ==
LOC: MICIMG 13:20
PROVIDERS: PCP Internal Medicine; Visit Provider Internal Medicine
DX: S46.011A Strain of muscle(s) and tendon(s) of the rotator cuff of right shoulder, initial encounter (principal); X58.XXXA Exposure to other specified factors, initial encounter
CPT/HCPCS: 73221